=== PATIENT | female | born 1960 | race Caucasian/White ===

== ENCOUNTER 2017-08-12 12:32 | Inpatient (IN) | payer OTHER ==
[2017-08-12] VITALS (14 sets, daily range): BP systolic 107–226; BP diastolic 56–140
[~2017-08-12] VITALS: Ht 160 cm; Wt 82.1 kg
--- NOTE | ~2017-08-12 | HC ---
[facility] [place] [address] CONSULTATION Name: LENA ROSALES Room #: 212- ADM IN M.R.#: [id number] Admission: 08/12/17 Attend Phys: Ludy Collins MD Discharge: Date of : 58 Report #: [id number] THIS REPORT FOR: //name// CC: Ludy Soliman TYPE OF REPORT: Pulmonary consultation. REFERRING PHYSICIAN: Ludy Collins M.D. REASON FOR REFERRAL: Acute respiratory failure. HISTORY OF PRESENT ILLNESS: The patient is a 57-year-old white female who was brought to the Emergency Room with worsening dyspnea. She was found to be in respiratory failure. A pulmonary consultation was requested. History is incomplete. Most of this is obtained from the ER record. She apparently resides in a facility. Today she became more dyspneic. When she was seen in the Emergency Room, initial arterial blood gas revealed pH 7.25, pCO2 122 and pO2 46. She was then placed on BiPAP with some improvement in pCO2. She then became more lethargic. At this time, she is not able to be aroused while on BiPAP. PAST MEDICAL HISTORY: Notable for hepatitis C, gastroesophageal reflux disease, neuropathy, history of heart failure, diabetes mellitus, atrial fibrillation and questionable history of COPD. ALLERGIES: To ASPIRIN, CARBAMAZEPINE, PENICILLIN and TRAMADOL. HOME MEDICATIONS: Colace, DuoNeb, methadone, Levemir, Humalog, Seroquel, nebulized albuterol, famotidine, Cardizem, Neurontin, Singulair and Lasix. FAMILY HISTORY: Unknown. SOCIAL HISTORY: Unknown, but she apparently resides in a facility. REVIEW OF SYSTEMS: Deferred as the patient is very obtunded at this time. PHYSICAL EXAMINATION: GENERAL: She is not able to be aroused. According to the ER physician, she was somewhat awake and talking prior when she arrived. Her mental status did deteriorate since been in the ER. VITAL SIGNS: Temperature is 98 degrees Fahrenheit, pulse is 100, respiratory rate is 20, blood pressure 130/60 mmHg and saturation is 100%. HEENT: Unremarkable. NECK: Supple, without lymphadenopathy or thyromegaly. CHEST: Breath sounds are fair with moderate expiratory wheezes. [address] [address] CONSULTATION Name: LENA ROSALES Room #: [address] [place] [address] IN M.R.#: [id number] Admission: 08/12/17 Attend Phys: Ludy Collins MD Discharge: Date of : 58 Report #: [id number] CARDIOVASCULAR: Heart sounds are distant. No obvious murmurs or gallop. Pulses are 2+/4+ bilaterally. BREASTS: Exam deferred. ABDOMEN: Soft and nontender. No organomegaly or masses felt. GENITOURINARY: Deferred. RECTAL: Deferred. EXTREMITIES: There is no edema, cyanosis or clubbing. RADIOLOGICAL DATA: Portable chest x-ray shows vascular prominence. No obvious infiltrates and increased interstitial marking throughout. LABORATORY DATA: Sodium 137, potassium 4.4, chloride 95, CO2 is greater than 45, BUN is 30, creatinine 0.6 and glucose is 422. WBC 4400, hemoglobin 10.0 and platelets are normal. Normal bandemia. Follow arterial blood gas, revealed pH 7.29, pCO2 of 96 and pO2 107 on 50% FiO2. IMPRESSION: 1. Jdryr-zj-hssnrzl hypercapnic hypoxic respiratory failure in this 57-year-old white female. Note that the history is incomplete. Etiology is unclear but presumed the patient likely has underlying chronic obstructive lung disease. It is unclear if she has hypoventilation syndrome, perhaps related to MEDICAL ADMINISTRATIVE SPECIALIST process. Note that hypercarbia appears to be chronic with partial compensation with ruxep-my-bufjnzl hypercarbia. 2. Encephalopathy. She is very obtunded at this moment. She apparently was talking while in the Emergency Room. When she arrived in the Emergency Room, then subsequently became less responsive. She may need a neurologic workup including neurologic consultation if she remains encephalopathic. Cause of this preliminarily is likely due to toxic due to narcosis but cannot rule out sepsis or other central nervous system event. 3. Hyperglycemia. She has a history of diabetes mellitus type 2, we would recommend insulin supplements or insulin drip. 4. History of heart failure. According to the medication list, she is on diuretics. Based on the electrolyte, she appears to be . She may be volume depleted. I would hold Lasix and reevaluate. 5. History of hepatitis C. 6. Atrial fibrillation. EKG today shows normal sinus rhythm. 7. Neuropathy. RECOMMENDATIONS: We will continue noninvasive positive pressure ventilation, however, concern the patient is quite obtunded. If she does not improve, she may require intubation. Consider Neurology consultation. She does have bronchospasm. I agree with corticosteroids and bronchodilators, but we will also recommend broad-spectrum antibiotics with presumed exacerbation of COPD. [facility] [address] [place] [address] CONSULTATION Name: LENA ROSALES Room #: 212-P ADM IN M.R.#: [id number] Admission: 08/12/17 Attend Phys: Ludy Collins MD Discharge: Date of : 58 Report #: [id number] In terms of diuretics, we would recommend holding the diuretics, IV fluids and monitor electrolytes closely. Monitor urine output closely. We would recommend obtaining records from outside facility for more accurate medical history. DVT and GI prophylaxis will be recommended. Thank you for this consultation. <ELECTRONICALLY SIGNED> By: León Jacques MD 08/13/17 1941 1734 0043 León Jacques MD /nt
--- NOTE | ~2017-08-12 | HC ---
[facility] [place] [address] CONSULTATION Name: LENA ROSALES Room #: [facility]- ADM IN M.R.#: [id number] Admission: 08/12/17 Attend Phys: Ludy Collins MD Discharge: Date of : 58 Report #: [id number] THIS REPORT FOR: //name// [facility]: [facility] DATE OF SERVICE: 08/12/2017 HISTORY OF PRESENT ILLNESS: This is a 57-year-old female patient who was evaluated by me for any neurological etiology for the altered mental status. This patient was admitted with shortness of breath. The patient's oxygen saturation was 77 and subsequently she underwent a blood gas and her pCO2 was 122. Presently, it is difficult to get the history from her because she is on pressured breathing. She is also getting breathing treatment. REVIEW OF SYSTEMS: Indicate that from the record, it looks like this patient has a history of diabetes. She has a history of neuropathy and hepatitis C. One of the records indicates she may have atrial fibrillation. She is on Seroquel, it is not clear why she is on Seroquel. I cannot get much history because she is on pressured breathing and has difficulty talking. I carried out the best I could the 14-point review of system from the records. PAST MEDICAL HISTORY: Also from the record and it looks like she does have a history of COPD. FAMILY HISTORY: Negative for seizure. SOCIAL HISTORY: Obtained from the record, it says tobacco use never smoker from the record. PHYSICAL EXAMINATION: Pretty limited. She is alert. She can follow commands. I could not do the good cognitive evaluation because the patient has a lot of trouble talking because of pressured breathing. Cranial nerve examination 2-12 looks mostly unremarkable. She moves all four extremities and strength, sensation, reflexes and tone looks symmetrical. There is really no meningeal sign in this patient and there is no carotid bruit. She is very short of breath. She is average built. Her blood pressure is 155/71 but it has fluctuated, respiration is 27, pulse is 100. LABORATORY DATA: Indicate a white count of 8.4 and she did have a CT scan of the head that was reviewed and it showed no acute process. IMPRESSION AND PLAN: This patient is difficult to evaluate because of her altered mental status, but from all indication, it would appear that most likely the patient's symptoms are because of her very high pCO2. I will suggest correcting it and see how she does with it. I will also discuss with you and [address] [address] CONSULTATION Name: LENA ROSALES Room #: [facility]- ADM IN .R.#: [id number] Admission: 08/12/17 Attend Phys: Ludy Collins MD Discharge: Date of : 58 Report #: [id number] follow up in a couple of days when she is better. I do not think any further neurological workup is indicated. She has other problems like atrial fibrillation and neuropathy, which can have an addressed as an outpatient. Thank you very much for this referral. <ELECTRONICALLY SIGNED> By: Sy Perea MD 08/18/17 1145 1931 [id number] Sy Perea MD /nt
--- NOTE | ~2017-08-12 | EKG ---
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 08/14/17 1518 1616 161 Jacky Chowdhury MD, FACC /EPI
--- NOTE | ~2017-08-12 | 2DMMODE ---
[facility] [address] [place] [address] 2 D/M-MODE ECHOCARDIOGRAM Name: LENA ROSALES Room #: 239-P ADM IN M.R.#: [id number] Admission: 08/12/17 Attend Phys: Ludy Collins Discharge: Date of : 58 Date of Service: 08/13/17 0848 Report #: [id number] THIS REPORT FOR: //name// APPROVED REPORT Study performed: 08/13/2017 07:59:33 EXAM: Comprehensive 2D, Doppler, and color-flow Echocardiogram Status: on-call BSA: 1.86 HR: 73 bpm BP: 100/54 mmHg Rhythm: NSR Other Information Study Quality: Adequate Indications Respiratory failure, CHF. Hx: COPD 2D Dimensions RVDd: 32.89 mm LVEF(%): 47.31 (>50%) IVSd: 10.40 (7-11mm) LVOT Diam: 19.70 (18-24mm) LVDd: 44.32 mm PWd: 9.71 (7-11mm) LVDs: 33.87 (25-40mm) Aortic Root: 28.80 mm Mcnamara's LVEF: 47.31 % Volumes Left Atrial Volume (Systole) Single Plane 4CH: 54.84 mL Single Plane 2CH: 48.05 mL LA ESV Index: 30.00 mL/m2 Aortic Valve AoV Peak Louie.: 1.42 m/s AO Peak Gr.: 8.07 mmHg LVOT Max P.80 mmHg LVOT Max V: 1.10 m/s CHOLO Vmax: 2.35 cm2 Mitral Valve E/A Ratio: 1.7 MV Decel. Time: 162.74 ms MV E Max Louie.: 1.27 m/s [facility] [address] [place] [address] 2 D/M-MODE ECHOCARDIOGRAM Name: CONNIELENA Room #: [facility] IN ..#: [id number] Admission: 08/12/17 Attend Phys: Ludy Collins Discharge: Date of : 58 Date of Service: 08/13/17 0848 Report #: [id number] MV A Louie.: 0.74 m/s MV PHT: 47.20 ms IVRT: 106.11 ms Pulmonary Valve PV Peak Louie.: 1.15 m/s PV Peak Gr.: 5.47 mmHg Pulmonary Vein P Vein S: 0.38 m/s P Vein D: 0.70 m/s P Vein S/D Ratio: 0.54 Tricuspid Valve TR Peak Louie.: 3.28 m/s RAP Estimate: 15.00 mmHg TR Peak Gr.: 42.98 mmHg PA Pressure: 58.00 mmHg Left Ventricle The left ventricle is normal size. There is normal left ventricular wall thickness. Left ventricular systolic function is low normal. LVEF is 50%. The left ventricular diastolic function is normal. Right Ventricle The right ventricle is normal size. The right ventricular systolic function is normal. Atria The left atrium size is normal. The right atrium size is normal. Aortic Valve The aortic valve is grossly normal. No aortic regurgitation is present. There is no aortic valvular stenosis. Mitral Valve The mitral valve is normal in structure. Trace to mild mitral regurgitation. Tricuspid Valve The tricuspid valve is normal in structure. Mild tricuspid regurgitation. Estimated PAP is 55-60mmHg. Pulmonic Valve The pulmonary valve is normal in structure. Trace pulmonic regurgitation. [facility] [address] [address] 2 D/M-MODE ECHOCARDIOGRAM Name: LENA ROSALES Room #: 239-P ADM IN M.R.#: [id number] Admission: 08/12/17 Attend Phys: Ludy Collins Discharge: Date of : 58 Date of Service: 08/13/17 0848 Report #: [id number] Great Vessels The aortic root is normal in size. Ascending aorta is not well visualized. IVC is dilated and collapses <50% with inspiration. Pericardium There is no pericardial effusion. <Conclusion> The left ventricle is normal size. LVEF is 50%. The aortic valve is grossly normal. The mitral valve is normal in structure. Trace to mild mitral regurgitation. The tricuspid valve is normal in structure. Mild tricuspid regurgitation. Estimated PAP is 55-60mmHg. The pulmonary valve is normal in structure. Trace pulmonic regurgitation. There is no pericardial effusion. <ELECTRONICALLY SIGNED> By: Joni Ruiz MD 08/13/17847 7 7 Joni Ruiz MD /INF
--- NOTE | ~2017-08-12 | D ---
[facility] [place] [address] DISCHARGE SUMMARY Name: LENA ROSALES Room #: 212-P [facility] IN M.R.#: [id number] Admission: 08/12/17 Attend Phys: Ludy Collins MD Discharge: 08/19/17 Date of : 58 Report #: [id number] THIS REPORT FOR: //name// CC: Ludy Diazh [facility] DATE OF SERVICE: 08/19/2017 HISTORY OF PRESENT ILLNESS: The patient is a 57-year-old female with history of severe COPD and pulmonary hypertension, who presents to the Emergency Room with severe lethargy. Her ABG showed CO2 of 122, pH of 7.25, and pO2 of 46. Please refer to the admission H and P for details. HOSPITALIZATION COURSE: The patient was hospitalized for hotrz-pk-ptcfuum respiratory failure, hypercarbic and hypoxemic, as well as respiratory acidosis. CHF exacerbation was also suspected based on pulmonary congestion. The patient was started on appropriate treatment. She was started on diuretics, as well as on steroids, and breathing treatments and antibiotics. The patient's condition improved significantly. By next morning, the patient was alert and awake. Pulmonology was consulted. The patient was continued on steroids, and antibiotics. Her condition continued to improve. Respiratory sounds remain diminished, with mild wheezes. Cardiac echo showed significant pulmonary hypertension, and normal left ventricular ejection fraction. Pulmonary artery pressure is 55-60. During the hospital stay, the patient had hyperglycemia due to the steroid use, that was treated with insulin. Currently, the patient's condition is at baseline. She is on continuous oxygen at home, and CPAP at night for her sleep apnea. She will be discharged back to the [facility] facility. Her physical examination and overall condition is acceptable at baseline, as documented in the patient's chart. DISCHARGE DIAGNOSES: 1. Bibop-st-xokthgj hypercarbic hypoxemic respiratory failure, with respiratory acidosis, resolved. The patient is currently at baseline. Again, the patient requires continuous oxygen supplementation for her severe chronic obstructive pulmonary disease. 2. Severe pulmonary hypertension. Diastolic heart failure. Treated with diuretics. 3. Carbon dioxide narcosis, metabolic encephalopathy on admission, resolved. 4. Diabetes mellitus type 2, chronically out of control, hemoglobin A1c 8%. [address] [address] DISCHARGE SUMMARY Name: LENA ROSALES Room #: 212-P [facility] IN M.R.#: [id number] Admission: 08/12/17 Attend Phys: Ludy Collins MD Discharge: 08/19/17 Date of : 58 Report #: [id number] 5. Tobacco abuse and dependence, strongly advised to quit. 6. Sleep apnea, treated with CPAP. 7. History of hepatitis C, treated as an outpatient. 8. Paroxysmal atrial fibrillation. DISCHARGE MEDICATIONS: Please refer to the medication reconciliation list. FOLLOWUP PLAN: 1. Follow up with the glaze supervisor as advised. 2. Follow up with the primary care physician in 1-2 weeks. DISPOSITION: The patient is discharged to the [facility] facility. I spent greater than 30 minutes to coordinate the patient's discharge from the hospital. <ELECTRONICALLY SIGNED> By: Ludy Collins MD 08/22/17 1410 0926 1004 Ludy Collins MD /nt
[2017-08-12] MEDS ORDERED: COLACE100 MG PO (13:00)
[2017-08-12] MEDS ORDERED: DOLOPHINE HCL5 MG PO (13:01)
[2017-08-12] MEDS ORDERED: DUONEB 2.5-0.5 M3 ML INH (13:01)
[2017-08-12] MEDS ORDERED: LEVEMIR SUBQ (13:02)
[2017-08-12] MEDS ORDERED: HUMALOG100 UNIT/2 SQ (13:04)
[2017-08-12] MEDS ORDERED: SEROQUEL 50 MG50 MG PO (13:05)
[2017-08-12] MEDS ORDERED: ALBUTEROL SULFAT2 MG PO (13:07)
[2017-08-12] MEDS ORDERED: FAMOTIDINE 20 M20 MG PO (13:07)
[2017-08-12] MEDS ORDERED: SINGULAIR 10 MG10 M1 PO (13:08)
[2017-08-12] MEDS ORDERED: GABAPENTIN 100100 MG PO (13:08)
[2017-08-12] MEDS ORDERED: CARDIZEM CD120 MG PO (13:08)
[2017-08-12 13:28] LABS: BE(vivo) 21.9 mmol/L (-2 to +3); HCO3 53.9 mmol/L (22.0-26.0); sO2 70.6 % (92.0-98.0)
[2017-08-12 13:29] LABS: PCO2 122.7 mmHg (35.0-45.0); PO2 46.1 mmHg (80.0-100.0); pH 7.261 (7.360-7.450)
[2017-08-12 13:34] LABS: AMP/METHAMP Negative (Negative); BARBITURATES Negative (Negative); BENZODIAZEPINES Negative (Negative); COCAINE Negative (Negative); METHADONE Negative (Negative); OPIATES Negative (Negative); PCP Negative (Negative)
[2017-08-12 13:53] LABS: HEMATOCRIT 31.4 % (37.0-47.0); MCH 30.8 pg (26.0-34.0); MCHC 31.9 g/dL (28.0-37.0); MCV 96.7 fL (80.0-100.0); PLATELET COUNT 149 thou/uL (150-400); RBC 3.25 mil/uL (4.20-5.00); RDW 16.2 % (10.5-14.5); WBC 8.4 thou/uL (4.0-11.0)
[2017-08-12] MEDS ORDERED: LASIX 40 MG TAB40 M2 PO (13:57)
[2017-08-12 14:05] LABS: BUN 30 mg/dL (7-18); CHLORIDE 95 mmol/L (98-107); CREATININE 0.6 mg/dL (0.6-1.0); GLUCOSE 422 mg/dL (74-106); POTASSIUM 4.4 mmol/L (3.5-5.1); SODIUM 137 mmol/L (136-145)
[2017-08-12 14:08] LABS: CO2 > 45 mmol/L (21-32)
[2017-08-12 15:01] LABS: ANISOCYTOSIS 1+; METAMYELOCYTES 1 %
[2017-08-12 15:20] LABS: BE(vivo) 15.7 mmol/L (-2 to +3); HCO3 45.7 mmol/L (22.0-26.0); PCO2 96.6 mmHg (35.0-45.0); PO2 107.6 mmHg (80.0-100.0); pH 7.293 (7.360-7.450)
[2017-08-12 16:00] LABS: ALBUMIN 3.4 g/dL (3.4-5.0); DIRECT BILIRUBIN 0.2 mg/dL (<0.1-0.3); SGOT 31 U/L (15-37); SGPT 46 U/L (30-65); TOTAL BILIRUBIN 0.6 mg/dL (<0.1-1.0); TOTAL PROTEIN 6.7 g/dL (6.4-8.2); TROPONIN-I < 0.04 ng/mL (<0.06)
[2017-08-12 19:29] LABS: BE(vivo) 13.7 mmol/L (-2 to +3); HCO3 41.2 mmol/L (22.0-26.0); PO2 81.7 mmHg (80.0-100.0); pH 7.382 (7.360-7.450); sO2 95.4 % (92.0-98.0)
[2017-08-13] VITALS (16 sets, daily range): BP systolic 100–180; BP diastolic 52–86
[2017-08-13 05:28] LABS: HEMATOCRIT 30.6 % (37.0-47.0); MCH 30.9 pg (26.0-34.0); MCHC 32.6 g/dL (28.0-37.0); MCV 94.9 fL (80.0-100.0); PLATELET COUNT 139 thou/uL (150-400); RBC 3.23 mil/uL (4.20-5.00); RDW 15.7 % (10.5-14.5); WBC 5.5 thou/uL (4.0-11.0)
[2017-08-13 05:33] LABS: BE(vivo) 16.4 mmol/L (-2 to +3); PO2 72.3 mmHg (80.0-100.0); pH 7.401 (7.360-7.450); sO2 93.8 % (92.0-98.0)
[2017-08-13 05:34] LABS: PCO2 72.5 mmHg (35.0-45.0)
[2017-08-13 05:44] LABS: ALBUMIN 2.7 g/dL (3.4-5.0); BUN 17 mg/dL (7-18); CHLORIDE 100 mmol/L (98-107); CREATININE 0.5 mg/dL (0.6-1.0); GLUCOSE 290 mg/dL (74-106); POTASSIUM 4.5 mmol/L (3.5-5.1); SGOT 17 U/L (15-37); SGPT 35 U/L (30-65); TOTAL BILIRUBIN 0.6 mg/dL (<0.1-1.0); TOTAL PROTEIN 5.3 g/dL (6.4-8.2)
[2017-08-13 05:47] LABS: CO2 > 45 mmol/L (21-32); SODIUM 145 mmol/L (136-145)
[2017-08-13 08:24] LABS: ABSOLUTE NEUTROPHILS 4.3 thou/uL (1.4-8.2); ANISOCYTOSIS 1+; POLYCHROMASIA OCCASIONAL
[2017-08-14 03:30] VITALS: BP 140/69
[2017-08-14 05:33] LABS: BE(vivo) 16.3 mmol/L (-2 to +3); HCO3 42.4 mmol/L (22.0-26.0); PCO2 59.9 mmHg (35.0-45.0); PO2 96.3 mmHg (80.0-100.0); pH 7.468 (7.360-7.450); sO2 97.5 % (92.0-98.0)
[2017-08-14 07:04] LABS: HEMOGLOBIN 10.4 gm/dL (12.0-15.0); MCH 30.9 pg (26.0-34.0); MCHC 32.3 g/dL (28.0-37.0); MCV 95.5 fL (80.0-100.0); RBC 3.35 mil/uL (4.20-5.00); RDW 16.1 % (10.5-14.5); WBC 6.3 thou/uL (4.0-11.0)
[2017-08-14 07:22] LABS: ANION GAP < 0 mmol/L (7-16); BUN 22 mg/dL (7-18); CHLORIDE 95 mmol/L (98-107); CO2 41 mmol/L (21-32); CREATININE 0.7 mg/dL (0.6-1.0); GLUCOSE 464 mg/dL (74-106); POTASSIUM 4.5 mmol/L (3.5-5.1); SGOT 11 U/L (15-37); SGPT 33 U/L (30-65); SODIUM 135 mmol/L (136-145); TOTAL BILIRUBIN 0.6 mg/dL (<0.1-1.0); TOTAL PROTEIN 6.3 g/dL (6.4-8.2)
[2017-08-14 07:44] VITALS: BP 138/75; BP 163/89
[2017-08-14 11:45] VITALS: BP 144/72
[2017-08-14 16:35] VITALS: BP 141/68
[2017-08-14 20:51] VITALS: BP 149/53
[2017-08-15 04:00] VITALS: BP 127/63
[2017-08-15 04:13] LABS: HEMATOCRIT 31.1 % (37.0-47.0); HEMOGLOBIN 10.2 gm/dL (12.0-15.0); MCH 30.9 pg (26.0-34.0); MCHC 32.8 g/dL (28.0-37.0); MCV 94.2 fL (80.0-100.0); RBC 3.31 mil/uL (4.20-5.00); RDW 16.1 % (10.5-14.5)
[2017-08-15 04:34] LABS: ALBUMIN 2.6 g/dL (3.4-5.0); CALCIUM 9.2 mg/dL (8.5-10.1); CREATININE 0.8 mg/dL (0.6-1.0); POTASSIUM 3.9 mmol/L (3.5-5.1); TOTAL BILIRUBIN 0.4 mg/dL (<0.1-1.0); TOTAL PROTEIN 5.3 g/dL (6.4-8.2)
[2017-08-15 07:30] VITALS: BP 119/70
[2017-08-15 11:30] VITALS: BP 136/82
[2017-08-15 15:05] VITALS: BP 146/80
[2017-08-15 20:30] VITALS: BP 133/74
[2017-08-16 04:30] VITALS: BP 114/64
[2017-08-16 05:41] LABS: ABSOLUTE NEUTROPHILS 5.7 thou/uL (1.4-8.2); BASOPHILS 0.4 % (0.0-2.0); EOSINOPHILS 0.7 % (0.0-3.0); HEMATOCRIT 34.9 % (37.0-47.0); HEMOGLOBIN 11.2 gm/dL (12.0-15.0); LYMPHOCYTES 23.7 % (24.0-44.0); MCH 30.9 pg (26.0-34.0); MCHC 32.2 g/dL (28.0-37.0); MCV 95.9 fL (80.0-100.0); MONOCYTES 5.3 % (1.0-8.0); PLATELET COUNT 216 thou/uL (150-400); POLYS 69.9 % (36.0-66.0); RBC 3.64 mil/uL (4.20-5.00); RDW 16.7 % (10.5-14.5); WBC 8.2 thou/uL (4.0-11.0)
[2017-08-16 05:46] LABS: CALCIUM 9.3 mg/dL (8.5-10.1); CREATININE 0.7 mg/dL (0.6-1.0); POTASSIUM 4.1 mmol/L (3.5-5.1)
[2017-08-16 07:20] VITALS: BP 132/57
[2017-08-16 11:20] VITALS: BP 133/63
[2017-08-16 15:50] VITALS: BP 162/85
[2017-08-16 20:04] VITALS: BP 162/86
[2017-08-17 04:08] VITALS: BP 107/54
[2017-08-17 08:05] VITALS: BP 115/66
[2017-08-17 11:23] VITALS: BP 118/51
[2017-08-17 15:46] VITALS: BP 121/59
[2017-08-17 20:20] VITALS: BP 135/67
[2017-08-18 04:45] VITALS: BP 113/68
[2017-08-18 08:40] VITALS: BP 150/84
[2017-08-18 12:04] VITALS: BP 139/83
[2017-08-18 15:39] VITALS: BP 148/68
[2017-08-18 20:30] VITALS: BP 138/76
[2017-08-19 04:30] VITALS: BP 138/80
[2017-08-19 06:09] LABS: HEMATOCRIT 35.3 % (37.0-47.0); HEMOGLOBIN 11.7 gm/dL (12.0-15.0); MCHC 33.1 g/dL (28.0-37.0); MCV 93.4 fL (80.0-100.0); PLATELET COUNT 224 thou/uL (150-400); RBC 3.78 mil/uL (4.20-5.00); RDW 16.5 % (10.5-14.5); WBC 9.6 thou/uL (4.0-11.0)
[2017-08-19 06:15] LABS: ANION GAP < 0 mmol/L (7-16); BUN 24 mg/dL (7-18); CALCIUM 9.7 mg/dL (8.5-10.1); CHLORIDE 102 mmol/L (98-107); CO2 37 mmol/L (21-32); CREATININE 0.6 mg/dL (0.6-1.0); GLUCOSE 131 mg/dL (74-106); SODIUM 138 mmol/L (136-145)
[2017-08-19 07:49] LABS: ABSOLUTE NEUTROPHILS 6.4 thou/uL (1.4-8.2); MYELOCYTES 1 %
[2017-08-19 07:50] LABS: ANISOCYTOSIS 1+
[2017-08-19 08:09] VITALS: BP 102/53
[2017-08-19] MEDS ORDERED: PREDNISONE 10 M10 MG PO (09:32)
[2017-08-19] MEDS ORDERED: LEVAQUIN 500 M500 M1 PO (09:32)
[2017-08-19] MEDS ORDERED: GLUCAGON HCL1 MG IM (09:32)
[2017-08-19] MEDS ORDERED: ADVAIR HFA 230M12 GM INH (09:32)
[2017-08-19] MEDS ORDERED: NOVOLOG100 UNIT/1 SUBQ ×2 (09:32)
[2017-08-19] MEDS ORDERED: LANTUS SUBQ (09:32)
[2017-08-19 11:17] VITALS: BP 126/71
[2017-08-19 11:19] LABS: BE(vivo) 5.4 mmol/L (-2 to +3); HCO3 31.1 mmol/L (22.0-26.0); PCO2 49.8 mmHg (35.0-45.0); pH 7.413 (7.360-7.450)
[2017-08-19 11:20] LABS: PO2 50.8 mmHg (80.0-100.0)
[2017-08-19 14:54] VITALS: BP 126/71
[2017-08-19 15:34] VITALS: BP 146/93
[2017-08-19 20:08] VITALS: BP 126/71
== END 2017-08-19 18:01 | disposition home or self-care (01) | DRG 189 ==
LOC: ER 12:32 → EROBS 15:31 → ICU 16:45 → 2N 08-13 15:44
PROVIDERS: Emergency Medicine; Hospitalist; Internal Medicine Endocrinology, Diabetes & Metabolism; Internal Medicine Pulmonary Disease
PROC: 5A09357 Assistance with Respiratory Ventilation, Less than 24 Consecutive Hours, Continuous Positive Airway Pressure (ICD-10-PCS; principal; 2017-08-12)
PROC: 5A09357 Assistance with Respiratory Ventilation, Less than 24 Consecutive Hours, Continuous Positive Airway Pressure (ICD-10-PCS; 2017-08-13)
PROC: 5A09357 Assistance with Respiratory Ventilation, Less than 24 Consecutive Hours, Continuous Positive Airway Pressure (ICD-10-PCS; 2017-08-16)
PROC: 5A09357 Assistance with Respiratory Ventilation, Less than 24 Consecutive Hours, Continuous Positive Airway Pressure (ICD-10-PCS; 2017-08-18)
DX: J96.22 Acute and chronic respiratory failure with hypercapnia (principal); G93.41 Metabolic encephalopathy; E87.2 Acidosis; E87.1 Hypo-osmolality and hyponatremia; J96.21 Acute and chronic respiratory failure with hypoxia; E11.40 Type 2 diabetes mellitus with diabetic neuropathy, unspecified; I48.91 Unspecified atrial fibrillation; K21.9 Gastro-esophageal reflux disease without esophagitis; I50.9 Heart failure, unspecified; E11.65 Type 2 diabetes mellitus with hyperglycemia; I27.20 Pulmonary hypertension, unspecified; I48.0 Paroxysmal atrial fibrillation; Z87.440 Personal history of urinary (tract) infections; I11.0 Hypertensive heart disease with heart failure; D64.9 Anemia, unspecified; J44.9 Chronic obstructive pulmonary disease, unspecified; Z79.899 Other long term (current) drug therapy; Z79.4 Long term (current) use of insulin; Z88.6 Allergy status to analgesic agent; Z88.0 Allergy status to penicillin; Z88.8 Allergy status to other drugs, medicaments and biological substances
CPT/HCPCS: 10078; 10081

== ENCOUNTER 2017-08-22 10:23 | Inpatient (IN) | payer OTHER ==
[~2017-08-22] VITALS: Ht 160 cm; Wt 75.7 kg
--- NOTE | ~2017-08-22 | EKG ---
[address] [address] ELECTROCARDIOGRAM REPORT Name: LENA ROSALES Room #: 170-11 ADM IN M.R.#: [id number] Admission: 08/22/17 Attend Phys: Edgar Momin MD Discharge: Date of : 58 Report #: [id number] THIS REPORT FOR: //name// [facility] ED Test Date: 2017-08-22 Test Time: 10:38:02 Pat Name: LNEA ROSALES Department: Room: 170 Gender: F Bed And Breakfast Innkeeper: Artem CHRISTIAN : 1960 Requested By: Brittany Reyes Order Number: [id number] MD: Home Beck Measurements Intervals Dudley Rate: 99 P: 83 IN: 109 QRS: 81 QRSD: 77 T: 72 QT: 317 QTc: 407 Interpretive Statements Sinus rhythm Compared to ECG 08/12/2017 16:16:08 No significant changes Electronically Signed On 08-22-2017 15:06:01 DATA ENTRY SPECIALIST by Home Beck [email or web address] <ELECTRONICALLY SIGNED> By: Home Beck MD 08/22/17 1506 [facility] 1038 Home Beck MD /DEBORAH
[2017-08-22 10:23] VITALS: BP 150/75
[~2017-08-22 10:23] MED LIST: ADVAIR HFA 230M12 GM INH; ALBUTEROL SULFAT2 MG PO; CARDIZEM CD120 MG PO; COLACE100 MG PO; DOLOPHINE HCL5 MG PO; DUONEB 2.5-0.5 M3 ML INH; FAMOTIDINE 20 M20 MG PO; GABAPENTIN 100100 MG PO; GLUCAGON HCL1 MG IM; HUMALOG100 UNIT/2 SQ; LANTUS SUBQ; LASIX 40 MG TAB40 M2 PO; LEVAQUIN 500 M500 M1 PO; LEVEMIR SUBQ; NOVOLOG100 UNIT/1 SUBQ; PREDNISONE 10 M10 MG PO; SEROQUEL 50 MG50 MG PO; SINGULAIR 10 MG10 M1 PO
[2017-08-22 11:01] LABS: BE(vivo) 5.3 mmol/L (-2 to +3); HCO3 34.3 mmol/L (22.0-26.0); PCO2 72.7 mmHg (35.0-45.0); PO2 68.7 mmHg (80.0-100.0); pH 7.291 (7.360-7.450)
[2017-08-22 11:21] LABS: CALCIUM 9.4 mg/dL (8.5-10.1); CREATININE 0.5 mg/dL (0.6-1.0); POTASSIUM 4.7 mmol/L (3.5-5.1)
[2017-08-22 11:25] LABS: HEMOGLOBIN 12.6 gm/dL (12.0-15.0); MCH 30.7 pg (26.0-34.0); MCHC 32.4 g/dL (28.0-37.0); MCV 94.5 fL (80.0-100.0); PLATELET COUNT 194 thou/uL (150-400); RBC 4.12 mil/uL (4.20-5.00); RDW 15.7 % (10.5-14.5); WBC 8.3 thou/uL (4.0-11.0)
[2017-08-22 11:56] LABS: ABSOLUTE NEUTROPHILS 6.8 thou/uL (1.4-8.2)
[2017-08-22 12:38] LABS: BE(vivo) 10.4 mmol/L (-2 to +3); HCO3 39.5 mmol/L (22.0-26.0); PCO2 76.9 mmHg (35.0-45.0); PO2 123.7 mmHg (80.0-100.0); pH 7.328 (7.360-7.450)
[2017-08-22 15:27] VITALS: BP 150/75
[2017-08-22 15:56] VITALS: BP 133/68
[2017-08-22 16:00] VITALS: BP 142/62
[2017-08-22 19:29] VITALS: BP 135/74
[2017-08-23 03:35] VITALS: BP 138/85
[2017-08-23 06:26] LABS: MCH 30.5 pg (26.0-34.0); MCHC 32.3 g/dL (28.0-37.0); MCV 94.3 fL (80.0-100.0); RBC 3.93 mil/uL (4.20-5.00); RDW 15.5 % (10.5-14.5); WBC 7.3 thou/uL (4.0-11.0)
[2017-08-23 06:44] LABS: CALCIUM 9.7 mg/dL (8.5-10.1); CREATININE 0.9 mg/dL (0.6-1.0); MAGNESIUM 1.8 mg/dL (1.8-2.4); POTASSIUM 4.6 mmol/L (3.5-5.1)
[2017-08-23 07:25] VITALS: BP 154/84
[2017-08-23 11:12] VITALS: BP 138/76
[2017-08-23 16:20] VITALS: BP 154/107
[2017-08-23 18:56] VITALS: BP 133/63
[2017-08-24 04:08] VITALS: BP 121/66
[2017-08-24 06:25] LABS: HEMATOCRIT 32.8 % (37.0-47.0); MCH 31.1 pg (26.0-34.0); MCHC 33.7 g/dL (28.0-37.0); MCV 92.1 fL (80.0-100.0); RBC 3.56 mil/uL (4.20-5.00); RDW 15.8 % (10.5-14.5); WBC 10.2 thou/uL (4.0-11.0)
[2017-08-24 06:38] LABS: CALCIUM 10.1 mg/dL (8.5-10.1); CREATININE 0.8 mg/dL (0.6-1.0); MAGNESIUM 1.8 mg/dL (1.8-2.4); POTASSIUM 4.3 mmol/L (3.5-5.1)
[2017-08-24 07:35] VITALS: BP 119/67
[2017-08-24] MEDS ORDERED: LEVAQUIN 500 M500 M1 PO (12:29)
[2017-08-24] MEDS ORDERED: DUONEB 2.5-0.5 M3 ML INH (12:29)
[2017-08-24] MEDS ORDERED: MUCINEX600 MG PO (12:30)
[2017-08-24] MEDS ORDERED: PREDNISONE 10 M10 MG PO (12:30)
[2017-08-24 12:43] VITALS: BP 119/67
[2017-08-24 17:21] VITALS: BP 157/58
[2017-08-25 22:11] LABS: ADENOVIRUS Negative (Negative); INFLUENZA A Negative (Negative); INFLUENZA B Negative (Negative); METAPNEUMOVIRUS Negative (Negative); PARAINFLUENZA 1 Negative (Negative); PARAINFLUENZA 2 Negative (Negative); PARAINFLUENZA 3 Negative (Negative); RHINOVIRUS Positive (Negative); RSV A Negative (Negative); RSV B Negative (Negative)
== END 2017-08-24 19:27 | disposition home or self-care (01) | DRG 189 ==
LOC: ER 10:23 → EROBS 11:46 → 3W 15:51 → ENTRNSPT 08-24 19:27 → 3W 08-24 19:27
PROVIDERS: Emergency Medicine; Internal Medicine
PROC: 5A09357 Assistance with Respiratory Ventilation, Less than 24 Consecutive Hours, Continuous Positive Airway Pressure (ICD-10-PCS; principal; 2017-08-23)
DX: J96.21 Acute and chronic respiratory failure with hypoxia (principal); J44.1 Chronic obstructive pulmonary disease with (acute) exacerbation; I50.32 Chronic diastolic (congestive) heart failure; K59.00 Constipation, unspecified; J96.22 Acute and chronic respiratory failure with hypercapnia; K21.9 Gastro-esophageal reflux disease without esophagitis; E11.40 Type 2 diabetes mellitus with diabetic neuropathy, unspecified; I48.91 Unspecified atrial fibrillation; I27.20 Pulmonary hypertension, unspecified; G89.29 Other chronic pain; Z79.899 Other long term (current) drug therapy; Z79.4 Long term (current) use of insulin; Z88.6 Allergy status to analgesic agent; Z88.0 Allergy status to penicillin; Z88.8 Allergy status to other drugs, medicaments and biological substances; Z87.891 Personal history of nicotine dependence; Z91.14 Patient's other noncompliance with medication regimen
CPT/HCPCS: 10879

== ENCOUNTER 2018-04-28 01:46 | Inpatient (IN) | payer OTHER ==
[~2018-04-28] VITALS: Ht 162.6 cm; Wt 76.2 kg
[2018-04-28] VITALS (14 sets, daily range): BP systolic 110–153; BP diastolic 49–74
--- NOTE | ~2018-04-28 | O ---
[facility] [place] [address] OPERATIVE REPORT Name: LENA ROSALES Room #: 207-P ADM IN M.R.#: [id number] Admission: 04/28/18 Attend Phys: Edgar Momin MD Discharge: Date of : 58 Report #: [id number] THIS REPORT FOR: //name// [facility]: [facility] DATE OF SERVICE: 05/05/2018 PROCEDURE: Diagnostic bronchoscopy. CLINICAL HISTORY: A 58-year-old white female presents with pneumonia. Chest x-ray and chest CT shows questionable right hilar density along with persistent partial right upper lobe atelectasis. Diagnostic bronchoscopy was performed. POSTOPERATIVE DIAGNOSES: 1. Mucus plugging, right main stem bronchus. 2. Mild mucosal edema involving right upper lobe. 3. No evidence of endobronchial lesion seen. DESCRIPTION OF PROCEDURE: Following obtained consent and risks and benefits been explained to the patient, which include infection, bleeding, pneumothorax, procedure was performed in endoscopy suite. The patient was given aerosolized lidocaine at 2% to the upper airways. We also utilized 1% and 2% lidocaine to the airways. She also received 2 mg of Versed IV push along with fentanyl 50 mcg IV push. After adequate sedation, a flexible fiberoptic bronchoscope was then introduced to the left naris without difficulty. Prior to this, a Q-tip with lidocaine jelly was introduced to the left naris for topical anesthetic. Prior to the procedure, timeout was performed identifying the patient and type of procedure. A flexible fiberoptic bronchoscope was then introduced to the naris without difficulty. The epiglottis was normal. Vocal cords were normal. Trachea was normal. Soraida was normal. Left main stem bronchus and left upper lobe was normal. Right mainstem bronchus showed mucus plugging with mildly purulent thick secretions. Following washing and suctioning, the rest of the airways were examined. The right upper lobe shows mild mucosal edema, but no endobronchial abnormalities. The right middle lobe orifice was normal. Right lower lobe was unremarkable. Bronchial wash was performed in the right lower lobe. Bronchoalveolar lavage was performed in the posterior segment of the right upper lobe correlating with the patient's recent chest CT showing pneumonia involving the right upper and superior basal segment of the right lower lobe. The patient tolerated the procedure well. Post-procedure, she remained [address] [address] OPERATIVE REPORT Name: LENA ROSALES Room #: 207-P [facility] IN M.R.#: [id number] Admission: 04/28/18 Attend Phys: Edgar Momin MD Discharge: Date of : 58 Report #: [id number] somnolent. Romazicon was given. Oxygen supplementation was increased maintaining an adequate saturation greater than 90%. Following a period of observation, she became more awake. Vital signs are stable. Bronchoalveolar lavage specimen will be sent for microbiologic studies. The bronchial brush specimen will be sent for cytology. <ELECTRONICALLY SIGNED> By: León Jacques MD 05/06/18 1538 1613 1815 León Jacques MD /nt
--- NOTE | ~2018-04-28 | 2DMMODE ---
[facility] [address] [place] [address] 2 D/M-MODE ECHOCARDIOGRAM Name: LENA ROSALES Room #: 207-P ADM IN M.R.#: [id number] Admission: 04/28/18 Attend Phys: Edgar Momin, Discharge: Date of : 58 Date of Service: 05/01/18 1202 Report #: [id number] THIS REPORT FOR: //name// APPROVED REPORT Study performed: 05/01/2018 10:46:35 EXAM: Comprehensive 2D, Doppler, and color-flow Echocardiogram Patient Location: Echo lab Room #: [facility] Status: routine BSA: 1.77 HR: 120 bpm BP: 169/84 mmHg Rhythm: Tachycardia Other Information Study Quality: Adequate Technically limited study due to lung disease. Indications Short of breath, effusion, history of pulmonary HTN. Hx: CHF, AFib, COPD, DM 2D Dimensions RVDd: 38.28 mm IVSd: 9.89 (7-11mm) LVOT Diam: 18.60 (18-24mm) LVDd: 47.44 mm PWd: 10.52 (7-11mm) LVDs: 29.04 (25-40mm) Aortic Root: 26.62 mm Volumes Left Atrial Volume (Systole) Single Plane 4CH: 35.03 mL Single Plane 2CH: 35.14 mL LA ESV Index: 21.00 mL/m2 Aortic Valve AoV Peak Louie.: 1.73 m/s AO Peak Gr.: 12.01 mmHg LVOT Max P.05 mmHg LVOT Max V: 1.42 m/s CHOLO Vmax: 2.22 cm2 Pulmonary Valve PV Peak Louie.: 1.33 m/s PV Peak Gr.: 7.04 mmHg [facility] [address] [place] [address] 2 D/M-MODE ECHOCARDIOGRAM Name: LENA ROSALES Room #: [facility] ADM IN .R.#: [id number] Admission: 04/28/18 Attend Phys: Edgar Momin, Discharge: Date of : 58 Date of Service: 05/01/18 1202 Report #: [id number] Tricuspid Valve RAP Estimate: 5.00 mmHg Left Ventricle The left ventricle is normal size. There is normal LV segmental wall motion. There is normal left ventricular wall thickness. Left ventricular systolic function is normal. LVEF is 60-65%. This study is not technically sufficient to allow evaluation of the LV diastolic function. Right Ventricle The right ventricle is normal size. The right ventricular systolic function is normal. Atria The left atrium size is normal. The right atrium size is normal. Aortic Valve The aortic valve is not well visualized. No aortic regurgitation is present. There is no aortic valvular stenosis. Mitral Valve The mitral valve is normal in structure. Trace mitral regurgitation. Tricuspid Valve The tricuspid valve is normal in structure. There is no tricuspid valve regurgitation noted. Unable to assess PA pressure. Pulmonic Valve Pulmonic valve is not well visualized. Great Vessels The aortic root is normal in size. Ascending aorta is not well visualized. IVC is normal in size and collapses >50% with inspiration. Pericardium There is no pericardial effusion. <Conclusion> The left ventricle is normal size. LVEF is 60-65%. The aortic valve is not well visualized. [facility] [address] [place] [address] 2 D/M-MODE ECHOCARDIOGRAM Name: LENA ROSALES Room #: 207-P [facility] IN M.R.#: [id number] Admission: 04/28/18 Attend Phys: Edgar Momin, Discharge: Date of : 58 Date of Service: 05/01/18 120 Report #: [id number] The mitral valve is normal in structure. Trace mitral regurgitation. The tricuspid valve is normal in structure. There is no tricuspid valve regurgitation noted. Unable to assess PA pressure. Pulmonic valve is not well visualized. There is no pericardial effusion. <ELECTRONICALLY SIGNED> By: Joni Ruiz MD 05/01/18 120 01 1202 Joni Ruiz MD /INF
--- NOTE | ~2018-04-28 | EKG ---
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
--- NOTE | ~2018-04-28 | PATH ---
[facility] [address] [place] [address] PATHOLOGY RPT PROCEDURE Name: LENA ROSALES Room #: 207-P DIS IN M.R.#: [id number] Admission: 04/28/18 Date of : 58 Discharge: 05/08/18 Report #: [id number] Path Case #: [id number] Note [facility] Accession Number: [id number] TESTS RESULT FLAG UNITS REF RANGE LAB Clinician Provided Cytology Information No. of containers..01 Other (Miscellaneous) Source: R MAINSTEM BRONCH [place] DIAGNOSIS: 02 RIGHT MAINSTEM BRONCH [place] NEGATIVE FOR MALIGNANT CELLS. NORMAL BRONCHIAL CELLS AND MACROPHAGES ARE PRESENT. PULMONARY MACROPHAGES (DUST CELLS) ARE PRESENT. Signed out by: Melissa Taylor MD, Pathologist NPI- [id number] Performed by: Lexus Oliva, Bread Baker ([facility]) Gross description: 01 11ML, KIERRA, SIMEON /LCS FLAG LEGEND: L-Low Normal,H-High Normal,LL-Alert Low,HH-Alert High <-Panic Low,>-Panic High,A-Abnormal,AA-Critical Abnormal Performed at: [address] [place] [address] Riley Sims MD, [address] [address] Melissa Taylor MD, Specimen Comment: A courtesy copy of this report has been sent to Specimen Comment: [phone]. Specimen Comment: Report sent to Performed at: [address], [place], [place] [id number] MD Riley Sims MD Phone: [phone]
--- NOTE | ~2018-04-28 | HC ---
[facility] [place] [address] CONSULTATION Name: LENA ROSALES Room #: 207- ADM IN M.R.#: [id number] Admission: 04/28/18 Attend Phys: Edgar Momin MD Discharge: Date of : 58 Report #: [id number] THIS REPORT FOR: //name// CC: Edgar Diazh [facility] DATE OF SERVICE: 04/28/2018 ATTENDING PHYSICIAN: Edgar Momin MD. CONSULTATION REQUESTED BY: Dr. Landa. REASON FOR CONSULTATION: Right-sided Pneumonia, antibiotic management. HISTORY OF PRESENT ILLNESS: A 58-year-old white woman admitted with shortness of breath and spine chest pain, requesting pain medication. When we are interviewing patient, she starts coughing and moves lots of bronchial secretions. She actually sounds pretty bad. PAST MEDICAL HISTORY: 1. Previous hospitalization at [place] with pneumonia. She is known to have hepatitis C infection. 2. Substance abuse. 3. Neuropathy. 4. Diabetes mellitus. 5. COPD. 6. Bipolar disorder. DRUG ALLERGIES: PENICILLIN. MEDICATIONS: The patient is currently on treatment with Levaquin 750 mg IV single dose, p.r.n. glucose, glucagon, insulin lispro per sliding scale, p.r.n. ondansetron, acetaminophen, melatonin. I started the patient on vancomycin and meropenem as well as she is on subcutaneous enoxaparin, amlodipine, Tresiba 20 units at bedtime, amlodipine, Atrovent, albuterol inhalation treatment. Formoterol inhalation treatment. SOCIAL HISTORY: See H and P, old records. FAMILY HISTORY: See H and P, old records. REVIEW OF SYSTEMS: As above and see H and P. PHYSICAL EXAMINATION: GENERAL: Chronically ill-appearing woman, afebrile. VITAL SIGNS: Temperature 98.7, pulse 109, respirations 20, BP 143/61, O2 [facility] [address] [place] [address] CONSULTATION Name: LENA ROSALES Room #: [facility]#: [id number] Admission: 04/28/18 Attend Phys: Edgar Momin MD Discharge: Date of : 58 Report #: [id number] saturation 93-98% on 5 liters oxygen nasal cannula. HEENMT: Pupils reactive. Conjunctivae normal. Mouth: Upper and lower plates. No thrush. NECK: Supple, no thyromegaly. LUNGS: Lots of rhonchi, crackles right lung anterior and posterior lung mojica. HEART: S1, S2. No gallop or murmur. ABDOMEN: Soft, no masses or megaly. PELVIC AND RECTAL: Deferred. EXTREMITIES: No clubbing, cyanosis. NEUROLOGIC: Grossly within normal limits. LABORATORY DATA: Sodium 137, potassium 4.7, BUN 25, creatinine 0.7, glucose 212, 132. Troponin normal. WBC 12.2, hemoglobin 10, platelets 279,000. White blood cell count differential revealed 59% segmented neutrophils, 30% bands. ABGs is pending. Previous urine toxicology screen revealed marijuana use. RADIOLOGY EVALUATION: Chest x-ray revealed right upper lung pneumonia and question nodule right lung. CT scan of the chest revealed possible bronchiectasis and extensive right-sided pulmonary infiltrates. ASSESSMENT: 1. Right-sided pneumonia, possible healthcare-associated pneumonia. 2. Chronic obstructive pulmonary disease. 3. Bronchiectasis. 4. Diabetes mellitus. 5. PENICILLIN ALLERGY. 6. Substance abuse. 7. History of hepatitis C infection. SUGGESTIONS: Recommend ESR, CRP, MRSA screen. Levaquin 750 mg IV daily, Zosyn 3.375 grams IV every 8 hours and vancomycin to be dosed by pharmacy. Sputum culture a must. Dr. Landa, thank you for requesting my suggestions. <ELECTRONICALLY SIGNED> By: Byron Beck MD 05/01/18 0941 [id number] 0407 Byron Beck MD /nt
--- NOTE | ~2018-04-28 | HC ---
[facility] [address] [address] CONSULTATION Name: LENA ROSALES Room #: 207-P ADM IN M.R.#: [id number] Admission: 04/28/18 Attend Phys: Edgar Momin MD Discharge: Date of : 58 Report #: [id number] THIS REPORT FOR: //name// [facility]: [facility] DATE OF SERVICE: 04/28/2018 REFERRING PHYSICIAN: Dr. Landa. REASON FOR REFERRAL: Pneumonia. HISTORY OF PRESENT ILLNESS: The patient is a 58-year-old white female who was brought to Emergency Room with dyspnea. Chest x-ray shows right upper lobe infiltrates. Pulmonary consultation was requested. The patient was last hospitalized here in 07/2017. She has known COPD. She had been homeless. More recently, she has been at [facility] and [facility]. Three weeks ago, she was hospitalized at [facility] for respiratory issues. The patient is a fair historian. She has numerous complaints. She states that she aches all over. She is short of breath. She also states that she has coughed up blood recently. At the [facility], the patient was found to be hypoxic with saturation 84% on 4 liters of O2. Chest x-ray shows right upper lobe volume loss and infiltrates. There is a questionable lung nodule seen in the right upper lobe. PAST MEDICAL HISTORY: As mentioned above, COPD with chronic hypercapnic respiratory failure, history of hepatitis C, atrial fibrillation, gastroesophageal reflux disease, neuropathy, diabetes mellitus type 2. ALLERGIES: ASPIRIN, CARBAMAZEPINE, PENICILLIN, TRAMADOL, reactions unspecified. MEDICATIONS: From the facility include Colace, DuoNeb, Seroquel, albuterol 2 mg p.o. every day, famotidine, Cardizem, Neurontin, Singulair, Lasix. FAMILY HISTORY: Noncontributory. SOCIAL HISTORY: She was just at [facility] facility. Prior to that, she was homeless. The patient has smoked in the past, but states that she has stopped. She denies any alcohol use. REVIEW OF SYSTEMS: As mentioned above, otherwise 10-point system review [facility] [address] [place] [address] CONSULTATION Name: LENA ROSALES Room #: 207-P ADM IN M.R.#: [id number] Admission: 04/28/18 Attend Phys: Edgar Momin MD Discharge: Date of : 58 Report #: [id number]. PHYSICAL EXAMINATION: GENERAL: She is awake, alert, mildly restless, dyspneic. She appears mildly distressed. VITAL SIGNS: Temperature is 98.7 degrees Fahrenheit, pulse 100, respiratory rate 16, blood pressure 124/55 mmHg, saturation 90%. HEENT: Normocephalic, atraumatic. NECK: Supple, without lymphadenopathy or thyromegaly. CHEST: Breath sounds are decreased bilaterally, expiratory wheezes, rales in the right lung field. CARDIOVASCULAR: Normal S1, S2. No murmurs or gallop. There is no JVD. There is no carotid bruit. Pulses are 2+/4+ bilaterally. BREASTS: Deferred. ABDOMEN: Soft, nontender, no organomegaly or masses felt. GENITOURINARY: Deferred. RECTAL: Deferred. EXTREMITIES: There is no edema, cyanosis or clubbing. LABORATORY DATA: Chest x-ray as mentioned above. CT chest shows extensive consolidation involving the right upper lobe, right lower lobe involving the lateral and posterior segments and medial segments. Positive consolidation suggests necrotizing pneumonia. Electrolytes are normal. WBC 12,200, hemoglobin 10.0, the platelets are normal. No significant bandemia. IMPRESSION: 1. Acute on chronic respiratory failure due to pneumonia, extensive involving the right upper and right lower lobe. There is a consolidation and also suggest possible necrotizing pneumonia. Aspiration is suspected. 2. Chronic obstructive pulmonary disease, tobacco abuse, past history of chronic hypercapnic respiratory insufficiency as mentioned above. 3. Tobacco abuse. 4. History of hepatitis C. 5. Gastroesophageal reflux disease. 6. Diabetes mellitus type 2. 7. Bipolar disorder. 8. Atrial fibrillation, paroxysmal. 9. Neuropathy. RECOMMENDATIONS: Agree with broad-spectrum antibiotics per Infectious Disease. Bronchodilators, corticosteroids, DVT and GI prophylaxis recommended. Need a followup x-ray to assure clearance of the infiltrates. As mentioned above, areas of the consolidation are concerning for necrotizing process. [address] [address] CONSULTATION Name: LENA ROSALES Room #: 207-P ADM IN M.R.#: [id number] Admission: 04/28/18 Attend Phys: Edgar Momin MD Discharge: Date of : 58 Report #: [id number] Thank you for this consultation. <ELECTRONICALLY SIGNED> By: León Jacques MD 04/29/18 1648 1327 0421 León Jacques MD /nt
[~2018-04-28 01:46] MED LIST changes: +MUCINEX600 MG PO
[2018-04-28 04:23] LABS: MCH 28.4 pg (26.0-34.0); MCHC 33.2 g/dL (28.0-37.0); MCV 85.5 fL (80.0-100.0); PLATELET COUNT 279 thou/uL (150-400); RDW 19.6 % (10.5-14.5); WBC 12.2 thou/uL (4.0-11.0)
[2018-04-28 04:31] LABS: ANION GAP 0 mmol/L (7-16); BUN 25 mg/dL (7-18); CALCIUM 9.8 mg/dL (8.5-10.1); CHLORIDE 99 mmol/L (98-107); CO2 38 mmol/L (21-32); CREATININE 0.7 mg/dL (0.6-1.0); GLUCOSE 134 mg/dL (74-106); POTASSIUM 4.7 mmol/L (3.5-5.1); SODIUM 137 mmol/L (136-145)
[2018-04-28 04:39] LABS: TROPONIN-I <0.06 ng/mL (<0.06)
[2018-04-28 04:46] LABS: ABSOLUTE NEUTROPHILS 7.3 thou/uL (1.4-8.2); MYELOCYTES 1 %
[2018-04-28 04:47] LABS: ANISOCYTOSIS 2+; LARGE PLATELETS RARE; TOXIC GRANULATION 1+
[2018-04-28] MEDS ORDERED: NORVASC5 MG PO (10:54)
[2018-04-28] MEDS ORDERED: GABAPENTIN 100100 MG PO (10:55)
[2018-04-28] MEDS ORDERED: PERFOROMIS20 MCG/2 M INH (10:55)
[2018-04-28] MEDS ORDERED: MELATIN3 MG PO (10:55)
[2018-04-28] MEDS ORDERED: HYDROCHLOROTH12.5 M1 PO (10:55)
[2018-04-28] MEDS ORDERED: METFORMIN HCL500 MG PO ×2 (10:56)
[2018-04-28] MEDS ORDERED: UNICOMPLEX M TA1 TA1 PO (10:56)
[2018-04-28] MEDS ORDERED: JANUVIA 50 MG T50 M1 PO (10:57)
[2018-04-28] MEDS ORDERED: ALBUTEROL2.5 MG/31 INH (10:57)
[2018-04-28] MEDS ORDERED: PROAIR HFA8.5 GM INH (10:58)
[2018-04-28] MEDS ORDERED: VISTARIL 25 MG25 M1 PO (10:58)
[2018-04-28] MEDS ORDERED: NICOTINE TRANSD21 M1 (10:59)
[2018-04-28] MEDS ORDERED: LIDOCAINE PAIN1 EACH TOP (10:59)
[2018-04-28] MEDS ORDERED: PREDNISONE 5 MG5 M1 PO (11:00)
[2018-04-28] MEDS ORDERED: TRESIBA FL100 UNIT/1 SUBQ (11:00)
[2018-04-28 13:20] LABS: BE(vivo) 6.1 mmol/L (-2 to +3); HCO3 33.3 mmol/L (22.0-26.0); PCO2 62.1 mmHg (35.0-45.0); PO2 71.1 mmHg (80.0-100.0); pH 7.347 (7.360-7.450)
[2018-04-29] VITALS (13 sets, daily range): BP systolic 111–156; BP diastolic 55–96
[2018-04-29 04:17] LABS: HEMOGLOBIN 11.4 gm/dL (12.0-15.0); MCH 28.5 pg (26.0-34.0); MCHC 32.7 g/dL (28.0-37.0); MCV 87.2 fL (80.0-100.0); RBC 4.01 mil/uL (4.20-5.00); RDW 20.1 % (10.5-14.5); WBC 9.7 thou/uL (4.0-11.0)
[2018-04-29 04:24] LABS: CALCIUM 8.9 mg/dL (8.5-10.1); CREATININE 0.8 mg/dL (0.6-1.0)
[2018-04-29 04:47] LABS: POTASSIUM 5.9 mmol/L (3.5-5.1)
[2018-04-30 02:17] LABS: HEMATOCRIT 31.9 % (37.0-47.0); HEMOGLOBIN 10.2 gm/dL (12.0-15.0); MCH 27.5 pg (26.0-34.0); MCHC 31.8 g/dL (28.0-37.0); MCV 86.5 fL (80.0-100.0); PLATELET COUNT 227 thou/uL (150-400); RBC 3.69 mil/uL (4.20-5.00); RDW 19.5 % (10.5-14.5)
[2018-04-30 02:30] LABS: CALCIUM 9.1 mg/dL (8.5-10.1); CREATININE 0.9 mg/dL (0.6-1.0)
[2018-04-30 02:32] LABS: POTASSIUM 4.8 mmol/L (3.5-5.1)
[2018-04-30 02:47] LABS: ANISOCYTOSIS 2+; POLYCHROMASIA 1+
[2018-04-30 04:00] VITALS: BP 175/83
[2018-04-30 08:00] VITALS: BP 184/108
[2018-04-30 13:32] VITALS: BP 155/85
[2018-04-30 16:44] VITALS: BP 155/85
[2018-04-30 19:13] VITALS: BP 179/99
[2018-05-01 00:40] VITALS: BP 179/99
[2018-05-01 03:31] LABS: HEMATOCRIT 31.2 % (37.0-47.0); MCH 27.8 pg (26.0-34.0); MCHC 32.1 g/dL (28.0-37.0); MCV 86.5 fL (80.0-100.0); RBC 3.61 mil/uL (4.20-5.00); RDW 18.8 % (10.5-14.5); WBC 10.9 thou/uL (4.0-11.0)
[2018-05-01 03:45] LABS: CALCIUM 8.9 mg/dL (8.5-10.1); CREATININE 0.9 mg/dL (0.6-1.0); MAGNESIUM 1.7 mg/dL (1.8-2.4); POTASSIUM 4.7 mmol/L (3.5-5.1)
[2018-05-01 04:06] VITALS: BP 169/84
[2018-05-01 04:17] LABS: FOLIC ACID 16.3 ng/mL (8.6-58.9); TSH 0.154 uIU/mL (0.358-3.740)
[2018-05-01 07:09] VITALS: BP 171/94
[2018-05-01 12:05] LABS: BE(vivo) 4.7 mmol/L (-2 to +3); HCO3 31.6 mmol/L (22.0-26.0); PCO2 58.7 mmHg (35.0-45.0); PO2 60.9 mmHg (80.0-100.0); pH 7.349 (7.360-7.450); sO2 89.6 % (92.0-98.0)
[2018-05-01 16:29] VITALS: BP 151/72
[2018-05-01 19:19] VITALS: BP 177/96
[2018-05-01 23:07] LABS: GLYCOHEMOGLOBIN (HGB A1C) 8.1 % (4.8-5.6)
[2018-05-02 05:02] LABS: HEMATOCRIT 31.3 % (37.0-47.0); HEMOGLOBIN 10.2 gm/dL (12.0-15.0); MCH 28.1 pg (26.0-34.0); MCHC 32.7 g/dL (28.0-37.0); PLATELET COUNT 203 thou/uL (150-400); RBC 3.64 mil/uL (4.20-5.00); RDW 19.3 % (10.5-14.5); WBC 10.9 thou/uL (4.0-11.0)
[2018-05-02 05:08] LABS: CALCIUM 9.5 mg/dL (8.5-10.1); CREATININE 0.5 mg/dL (0.6-1.0); MAGNESIUM 2.1 mg/dL (1.8-2.4); POTASSIUM 4.9 mmol/L (3.5-5.1)
[2018-05-02 05:33] VITALS: BP 143/81
[2018-05-02 07:34] VITALS: BP 166/100
[2018-05-02 09:14] LABS: ABSOLUTE NEUTROPHILS 8.4 thou/uL (1.4-8.2); METAMYELOCYTES 3 %
[2018-05-02 09:15] LABS: ANISOCYTOSIS 2+; POLYCHROMASIA OCCASIONAL
[2018-05-02 10:41] VITALS: BP 165/89
[2018-05-02 15:00] VITALS: BP 143/71
[2018-05-02 19:35] VITALS: BP 147/86
[2018-05-03 06:00] VITALS: BP 129/73
[2018-05-03 07:50] VITALS: BP 132/63
[2018-05-03 11:50] VITALS: BP 143/71
[2018-05-03 15:00] VITALS: BP 129/70
[2018-05-04 03:45] VITALS: BP 150/84
[2018-05-04 07:25] VITALS: BP 138/67
[2018-05-04 11:40] VITALS: BP 127/69
[2018-05-04 15:50] VITALS: BP 130/57
[2018-05-04 19:04] VITALS: BP 150/80
[2018-05-04 20:06] LABS: APTT 22.6 Seconds (24.5-32.8); PROTIME 10.7 Seconds (9.3-11.4)
[2018-05-05 02:52] LABS: HEMATOCRIT 29.8 % (37.0-47.0); HEMOGLOBIN 9.5 gm/dL (12.0-15.0); MCH 27.7 pg (26.0-34.0); MCHC 31.9 g/dL (28.0-37.0); MCV 86.8 fL (80.0-100.0); RBC 3.43 mil/uL (4.20-5.00); WBC 10.2 thou/uL (4.0-11.0)
[2018-05-05 03:09] LABS: CALCIUM 7.9 mg/dL (8.5-10.1); CREATININE 0.5 mg/dL (0.6-1.0)
[2018-05-05 04:33] VITALS: BP 140/75
[2018-05-05 07:15] VITALS: BP 133/61
[2018-05-05 11:35] VITALS: BP 130/70
[2018-05-05 13:33] VITALS: BP 133/67
[2018-05-05 16:15] VITALS: BP 109/92
[2018-05-05 19:45] VITALS: BP 119/48
[2018-05-06 01:46] LABS: ANION GAP < 0 mmol/L (7-16); BUN 26 mg/dL (7-18); CALCIUM 8.8 mg/dL (8.5-10.1); CHLORIDE 98 mmol/L (98-107); CO2 40 mmol/L (21-32); CREATININE 0.9 mg/dL (0.6-1.0); GLUCOSE 233 mg/dL (74-106); POTASSIUM 5.1 mmol/L (3.5-5.1); SODIUM 137 mmol/L (136-145)
[2018-05-06 03:58] VITALS: BP 114/52
[2018-05-06 08:10] VITALS: BP 120/64
[2018-05-06 11:55] VITALS: BP 135/65
[2018-05-06 15:15] VITALS: BP 132/70
[2018-05-06 19:44] VITALS: BP 127/65
[2018-05-07 05:47] VITALS: BP 138/73
[2018-05-07 08:15] VITALS: BP 130/70
[2018-05-07] MEDS ORDERED: ZYPREXA 5 MG TAB5 M1 PO (11:42)
[2018-05-07] MEDS ORDERED: KEFLEX500 M1 PO (11:42)
[2018-05-07 16:35] VITALS: BP 135/73
[2018-05-07 20:39] VITALS: BP 161/75
[2018-05-08 04:02] VITALS: BP 114/50
[2018-05-08 07:40] VITALS: BP 125/62
[2018-05-08 09:36] VITALS: BP 125/62
== END 2018-05-08 14:05 | DRG 871 ==
LOC: ER 01:46 → EROBS 06:54 → 2N 06:54 → ICU 09:26 → 2N 04-29 13:40
PROVIDERS: Emergency Medicine; Hospitalist; Internal Medicine Pulmonary Disease
DX: A41.9 Sepsis, unspecified organism (principal); J96.21 Acute and chronic respiratory failure with hypoxia; J96.22 Acute and chronic respiratory failure with hypercapnia; J13 Pneumonia due to Streptococcus pneumoniae; T17.590A Other foreign object in bronchus causing asphyxiation, initial encounter; G93.40 Encephalopathy, unspecified; B37.0 Candidal stomatitis; M84.422A Pathological fracture, left humerus, initial encounter for fracture; J44.0 Chronic obstructive pulmonary disease with (acute) lower respiratory infection; K21.9 Gastro-esophageal reflux disease without esophagitis; K59.00 Constipation, unspecified; E11.40 Type 2 diabetes mellitus with diabetic neuropathy, unspecified; I50.9 Heart failure, unspecified; F31.9 Bipolar disorder, unspecified; G89.29 Other chronic pain; I48.0 Paroxysmal atrial fibrillation; F17.210 Nicotine dependence, cigarettes, uncomplicated; M25.519 Pain in unspecified shoulder; M54.2 Cervicalgia; J45.909 Unspecified asthma, uncomplicated; I11.0 Hypertensive heart disease with heart failure; E87.5 Hyperkalemia; B19.20 Unspecified viral hepatitis C without hepatic coma; B37.2 Candidiasis of skin and nail; X58.XXXA Exposure to other specified factors, initial encounter; Y93.89 Activity, other specified; Y92.89 Other specified places as the place of occurrence of the external cause; Y99.8 Other external cause status; Z88.6 Allergy status to analgesic agent; Z88.0 Allergy status to penicillin; Z88.8 Allergy status to other drugs, medicaments and biological substances
CPT/HCPCS: 10081; 10203; 27000

== ENCOUNTER 2018-07-16 13:07 | Inpatient (IN) | payer OTHER ==
[~2018-07-16] VITALS: Ht 162.6 cm; Wt 77.1 kg
[2018-07-16 13:07] VITALS: BP 148/69
[~2018-07-16 13:07] MED LIST changes: +ALBUTEROL2.5 MG/31 INH; +HYDROCHLOROTH12.5 M1 PO; +JANUVIA 50 MG T50 M1 PO; +KEFLEX500 M1 PO; +LIDOCAINE PAIN1 EACH TOP; +MELATIN3 MG PO; +METFORMIN HCL500 MG PO; +NICOTINE TRANSD21 M1; +NORVASC5 MG PO; +PERFOROMIS20 MCG/2 M INH; +PREDNISONE 5 MG5 M1 PO; +PROAIR HFA8.5 GM INH; +TRESIBA FL100 UNIT/1 SUBQ; +UNICOMPLEX M TA1 TA1 PO; +VISTARIL 25 MG25 M1 PO; +ZYPREXA 5 MG TAB5 M1 PO
[2018-07-16 13:36] LABS: BE(vivo) 7.5 mmol/L (-2 to +3); HCO3 35.9 mmol/L (22.0-26.0); PCO2 70.6 mmHg (35.0-45.0); PO2 64.5 mmHg (80.0-100.0); pH 7.324 (7.360-7.450); sO2 90.2 % (92.0-98.0)
[2018-07-16 14:37] LABS: ABSOLUTE NEUTROPHILS 3.1 thou/uL (1.4-8.2); BASOPHILS 0.3 % (0.0-2.0); EOSINOPHILS 0.2 % (0.0-3.0); HEMATOCRIT 37.5 % (37.0-47.0); HEMOGLOBIN 12.3 gm/dL (12.0-15.0); LYMPHOCYTES 15.3 % (24.0-44.0); MCH 28.3 pg (26.0-34.0); MCHC 32.7 g/dL (28.0-37.0); MCV 86.5 fL (80.0-100.0); MONOCYTES 10.6 % (1.0-8.0); PLATELET COUNT 112 thou/uL (150-400); POLYS 73.6 % (36.0-66.0); RBC 4.34 mil/uL (4.20-5.00); RDW 15.3 % (10.5-14.5); WBC 4.3 thou/uL (4.0-11.0)
[2018-07-16 14:44] LABS: ANION GAP 0 mmol/L (7-16); BUN 18 mg/dL (7-18); CALCIUM 9.5 mg/dL (8.5-10.1); CHLORIDE 96 mmol/L (98-107); CO2 42 mmol/L (21-32); CREATININE 0.6 mg/dL (0.6-1.0); GLUCOSE 169 mg/dL (74-106); POTASSIUM 4.4 mmol/L (3.5-5.1); SODIUM 138 mmol/L (136-145)
[2018-07-16 14:53] LABS: ALBUMIN 2.9 g/dL (3.4-5.0); SGOT 26 U/L (15-37); SGPT 25 U/L (30-65); TOTAL BILIRUBIN 0.6 mg/dL (<0.1-1.0); TOTAL PROTEIN 7.3 g/dL (6.4-8.2); TROPONIN-I <0.06 ng/mL (<0.06)
[2018-07-16 15:35] VITALS: BP 142/69
[2018-07-16 15:39] LABS: BE(vivo) 6.5 mmol/L (-2 to +3); HCO3 34.8 mmol/L (22.0-26.0); PCO2 69.4 mmHg (35.0-45.0); PO2 83.8 mmHg (80.0-100.0); pH 7.318 (7.360-7.450); sO2 95.1 % (92.0-98.0)
[2018-07-16 16:35] VITALS: BP 136/69
[2018-07-16 16:37] VITALS: BP 134/77
--- NOTE | 2018-07-16 17:21 | NUR ---
[age] YEAR OLD FEMALE ADMITTED TO 3WEST ROOM 354 UNDER THE CARE OF DR ALMEIDA. PT WAS BROUGHT INTO ER PER EMS FROM [facility]. DUE TO INCREASED SOA FOR THREE DAYS AND COUGHING UP GREEN "STUFF". PT CAME TO UNIT ON BIPAP SATS 97%, BUT NORMALLY WEARS 3L O2 AT FACILITY. PT ALERT AND ORIENTED TIMES FOUR BUT AGITATED, VSS, ST ON TELE. PT C/O OF CHRONIC PAIN IN BLE. PT WAS ABLE TO TOLEREATE DINNER, BUT WAS UNABLE TO BE WITHOUT BIPAP FOR LONG 02 SATS 88% ON 3L NC. PT NOW RESTING QUIETLY. WILL CONTINUE TO MONITOR.
[2018-07-16 19:40] VITALS: BP 138/71
[2018-07-17 04:42] VITALS: BP 138/63
[2018-07-17 05:35] LABS: HEMATOCRIT 37.7 % (37.0-47.0); HEMOGLOBIN 12.6 gm/dL (12.0-15.0); MCH 28.6 pg (26.0-34.0); MCHC 33.4 g/dL (28.0-37.0); MCV 85.7 fL (80.0-100.0); RBC 4.39 mil/uL (4.20-5.00); RDW 14.6 % (10.5-14.5)
[2018-07-17 05:50] LABS: CALCIUM 9.7 mg/dL (8.5-10.1); CREATININE 0.5 mg/dL (0.6-1.0); POTASSIUM 4.9 mmol/L (3.5-5.1)
--- NOTE | 2018-07-17 06:34 | NUR ---
PT WAS AN YESTERDAY AFTERNOON ADMIT WITH [facility]. FOLLOWING POC WITH IVPB ANTIBIOTICS. PT IS ON AND OFF BIPAP THROUGHOUT THE NIGHT. PT REQUESTED SOME COUGH SYRUP AND SPRAY FOR HER SORE THROAT, SPOKE TO SUPERVISOR FIREARMS AND GOT IT ORDERED. HOURLY ROUNDING.
[2018-07-17 07:31] VITALS: BP 144/83
--- NOTE | 2018-07-17 07:32 | NUR ---
ATTEMPTED TO CALL [facility] TO GET MED LIST FOR PATIENT BUT LINES AR BUSY.
--- NOTE | 2018-07-17 09:16 | EKG ---
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: : 1960 Requested By: Murphy Whaley Order Number: [id number] MD: Jacky Chowdhury Measurements Intervals [place] Rate: 100 P: 79 CT: 120 QRS: 78 QRSD: 80 T: 70 QT: 316 QTc: 408 Interpretive Statements Sinus tachycardia Otherwise normal tracing Compared to ECG 04/28/2018 03:55:16 No significant change was found Electronically Signed On 07-17-2018 9:16:38 SHELL [employer]ONDER by Jacky Chowdhury [email or web address] <ELECTRONICALLY SIGNED> By: Jakcy Chowdhury MD, [facility] 07/17/18 0916 1326 25 Jacky Chowdhury MD, FACC /EPI
--- NOTE | 2018-07-17 10:11 | NUR ---
DP SENT INITIAL REFERRAL TO [facility], DP ALSO SENT MESSAGE TO RASHID/ADMISSIONS AT [facility] INQUIRING IF PATIENT WAS SKILLED OR GROUP HOME AT THEIR FACILITY BEFORE HOSPITAL ADMISSION. DP WILL FOLLOW UP.
--- NOTE | 2018-07-17 13:56 | NUR ---
cm visited with pt at bedside. pt is a & o x 3, and able to make her needs know. intro to cm and transition of care. " at [facility] now but don't plan on staying there for every, [place]. i was homeless prior to last year of been in hospital and now at facility. use o2 and cpap when someone will turn on for me at bedtime. know have to go back there, but still [place]. my sister is moving so she will bring some of my stuff, when she moves"/adriano. end of visit pt working with speech therapy. will cont following as needed for dc needs. referral to be sent to [facility]. dcp [facility]
[2018-07-17 16:37] VITALS: BP 141/67
--- NOTE | 2018-07-17 17:57 | NUR ---
PATIENT HAS BEEN NOTED TO BE QUITE RESTLESS IN ROOM. TAKES OFF BIPAP, NUMEROUS TIMES EVEN THOUGH OXYGEN SAT IS LOW. EDUCATED ON NEED TO KEEP BIPAP ON. STARTED ON OXYGEN NC AT 6L. NO FEVERS NOTED. RESPIRATIONS ARE LABORED WITH NC ESPECIALLY WITH EXERTION. SHE IS SLOWLY PROGRESSING TOWARDS GOALS.
[2018-07-17 19:41] VITALS: BP 160/77
[2018-07-18 03:16] VITALS: BP 136/87
--- NOTE | 2018-07-18 03:48 | NUR ---
Pt. very anxious and fidgety at start of shift talking very fast and continous. Encouraged to take a deep breath and calm down. She just had a breathing tx then. O2 at 4L/NC and verbalized being short of breath with exertion. HS meds given and started to calm down after. She slept well with BIPAP on all night except when up to commode. Denies need for pain med at this time though she had one around 1800. Slowly progressing towards care plan goals.
[2018-07-18 08:00] VITALS: BP 151/72
[2018-07-18 12:04] VITALS: BP 153/65
--- NOTE | 2018-07-18 13:38 | NUR ---
SW reviewed chart and spoke with nursing and attending physician. Pt is progressing towards goals for discharge. Discharge back to [facility] is anticipated for tomorrow. SW updated Ajgjit in admissions. SW met with pt at bedside to provide update. Pt is aware and agreeable with plan. Pt states she does not have a bra or underwear here and wants to have these items when she is discharged. SW states that if the facility cannot bring her personal belongings, then she may have to return without them. Pt verbalized understanding. SW is following to assist as needed with discharge planning.
[2018-07-18 16:00] VITALS: BP 161/84
--- NOTE | 2018-07-18 16:28 | NUR ---
ASSUMED CARE AT SHIFT CHANGE. PT A/O X 4, HYPERACTIVE/MANIC BEHAVIOR NOTED THROUGHOUT THE DAY. PT HYPERVERBAL AND CLEANING OUT ALL OF HER BELONGING BAGS THIS AFTERNOON STATES " I JUST NEED TO GET ORGANIZED, I WANT TO BE ORGANIZED". PT MEDICATED FOR PAIN PRN. NAD NOTED. PT O2 SAT DROPPED WITH OT THIS MORNING, BUT PT WAS ABLE TO WALK WITH THERAPY THIS AFTERNOON WITH MODERATE ENDURANCE. ASSESSMENTS PER CHART. LABS NOTED. WILL CONT TO MONITOR AND INTERVENE PRN.
[2018-07-18 19:54] VITALS: BP 180/89
[2018-07-18 22:52] LABS: HEMOGLOBIN 11.8 gm/dL (12.0-15.0); RBC 4.15 mil/uL (4.20-5.00); WBC 5.8 thou/uL (4.0-11.0)
[2018-07-18 22:53] LABS: HEMATOCRIT 35.8 % (37.0-47.0); MCH 28.5 pg (26.0-34.0); MCV 86.2 fL (80.0-100.0); RDW 14.8 % (10.5-14.5)
[2018-07-18 22:58] LABS: ANION GAP 0 mmol/L (7-16); BUN 24 mg/dL (7-18); CALCIUM 9.8 mg/dL (8.5-10.1); CHLORIDE 98 mmol/L (98-107); CO2 41 mmol/L (21-32); CREATININE 0.7 mg/dL (0.6-1.0); GLUCOSE 293 mg/dL (74-106); POTASSIUM 4.9 mmol/L (3.5-5.1); SODIUM 139 mmol/L (136-145)
[2018-07-18 23:07] LABS: MAGNESIUM 1.8 mg/dL (1.8-2.4); TROPONIN-I <0.06 ng/mL (<0.06)
--- NOTE | 2018-07-19 05:17 | NUR ---
PATIENT IS ALERT AND ORIENTED. PATIENT IS SBA. PATIENT IS NSR TO SA ON TELE. PATIENTS LBM WAS THE 20TH. PATINET HAS SOME ANXIETY. PATIENT CO CHEST PAIN. EKG AND TROP NEGATIVE. PATIENT IS ON 3LNC AND BIPAP HS. PATIENT IS ON CONTINOUS PULSE OX. PATIENT DESTATES OFF OF OXYGEN. PATIENTS PAIN IS TREATED ON PAIN MEDICATIONS. PATIENT IS RESTING COMFORTABLEY IN BED. WCM. PATIENT PROGRESSING TO GOALS.
[2018-07-19 05:37] VITALS: BP 132/76
[2018-07-19 05:40] LABS: ABSOLUTE NEUTROPHILS 3.8 thou/uL (1.4-8.2); BASOPHILS 0.6 % (0.0-2.0); EOSINOPHILS 0.7 % (0.0-3.0); HEMATOCRIT 35.3 % (37.0-47.0); HEMOGLOBIN 11.4 gm/dL (12.0-15.0); MCH 27.9 pg (26.0-34.0); MCHC 32.3 g/dL (28.0-37.0); MCV 86.4 fL (80.0-100.0); MONOCYTES 7.3 % (1.0-8.0); PLATELET COUNT 135 thou/uL (150-400); POLYS 73.4 % (36.0-66.0); RBC 4.08 mil/uL (4.20-5.00); RDW 14.8 % (10.5-14.5); WBC 5.1 thou/uL (4.0-11.0)
--- NOTE | 2018-07-19 08:08 | EKG ---
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 IZAGUIRRE : 1960 Requested By: Karen Saavedra Order Number: [id number] MD: Jacky Chowdhury Measurements Intervals [place] Rate: 86 P: 74 DC: 118 QRS: 72 QRSD: 86 T: 63 QT: 334 QTc: 400 Interpretive Statements Sinus rhythm No significant abnormality Compared to ECG 07/16/2018 13:26:35 Sinus tachycardia no longer present Electronically Signed On 07-19-2018 8:08:38 [employer]VER [employer] by Jacky Chowdhury [email or web address] <ELECTRONICALLY SIGNED> By: Jacky Chowdhury MD, [facility] 07/19/18807 01 01 Jacky Chowdhury MD, FACC /EPI
[2018-07-19 08:18] VITALS: BP 150/90
--- NOTE | 2018-07-19 08:36 | NUR ---
PT IS A&0X4, SCRATCHY VOICE, C/O PAIN GEN'L ALL OVER, ENCOURAGED TO DO DEEP SLOW INHALATIONS/EXHALATIONS TO FACILITATE BREATHING, WEARS 02 AT HOME 3L, GOOD APPETITE, ENCOURAGED TO CALL FOR ANY NEEDS
[2018-07-19 12:22] VITALS: BP 168/77
--- NOTE | 2018-07-19 12:34 | NUR ---
JUANPABLO reviewed chart and spoke with nursing and attending physician. Pt is not yet medically stable for discharge. JUANPABLO updated Yaima at [facility]. Per Yaima, she will bring pt some clothes/undergarments for when she is ready for discharge. JUANPABLO is following to assist as needed with discharge planning.
[2018-07-19 16:53] VITALS: BP 176/90
[2018-07-19 18:59] VITALS: BP 168/82
[2018-07-20 03:42] VITALS: BP 187/88
--- NOTE | 2018-07-20 04:10 | NUR ---
BIPAP ON PT ALL NIGHT. COMPLAINTS ARE STILL FOLLOWING THE SAME TREND WITH CHEST PAIN. PT STATED SHE WAS HAVING STOMACH PAINS. COULD BE DUE TO LACK OF BM'S AND PAIN MEDICATION. KATTY HAS SUBSIDED TONIGHT WITH LESS ANXIETY. VSS AND NO FEVER. FOLLOWING POC WITH IVPB ANTIBIOTICS AND FLUIDS. PT UP TO BSC WITH STAND BY. HOURLY ROUNDING.
[2018-07-20 07:44] VITALS: BP 167/86
[2018-07-20 12:08] VITALS: BP 167/79
--- NOTE | 2018-07-20 14:04 | NUR ---
SW reviewed chart and spoke with nursing and attending physician. Pt is not ready for discharge back to [facility] today. SW updated [facility] liaison. Faxed clinical updates. JUANPABLO is following to assist as needed with discharge planning.
[2018-07-20 16:24] VITALS: BP 156/69
--- NOTE | 2018-07-20 18:44 | NUR ---
PATIENT HAS SLEPT THROUGH THE DAY UNTIL ABOUT 5PM. SHE IS NOTED TO HAVE ANXIETY SHE WILL SUDDENLY LEAVE THE BED WITHOUT CALLING FOR HELP. SHE WILL REQUEST MULTIPLE ITEMS AT THE SAME TIME. IV TO RIGHT UA IN PLACE. WILL CONT WITH PLAN OF CARE.
[2018-07-20 20:00] VITALS: BP 182/89
--- NOTE | 2018-07-21 00:09 | NUR ---
DISEASE PROCESS OF THE BI POLAR HAS REACHED THE KATTY PHASE TONIGHT: RESTLESS, IMPULSIVE, HIGH ANXIETY, CONFUSION, AND UNCLEAR DEMANDS. PT IS ALL OVER THE BOARD WITH MOODS AND REQUEST. SHE WANTS TO BE ON BIPAP, THEN OFF, THEN ON. PT WAS RINGING CALL LIGHT EVERY 5-10 MINUTES AT SHIFT CHANGE. CALLED ROTARY ENGRAVER LESLIE AND GOT ONE DOSE OF HALIDOL OF 2.5. GAVE PT ONE DOSE, AND SHE HAS BEEN FINALLY RESTING COMFORTABLY WITHOUT ANY ISSUES. MONITORING QT COMPLEXS.
--- NOTE | 2018-07-21 03:05 | NUR ---
TOOK OVER CARE OF PATIENT AT 0015. ASSESSMENT CHARTED. PATIENT SLEEPING. PLAN OF CARE IS TO RETURN TO [facility] POSSIBLY TODAY.
[2018-07-21 04:55] VITALS: BP 176/89
[2018-07-21 07:09] LABS: ADENOVIRUS Negative (Negative); INFLUENZA A Negative (Negative); INFLUENZA B Negative (Negative); METAPNEUMOVIRUS Positive (Negative); PARAINFLUENZA 1 Negative (Negative); PARAINFLUENZA 2 Negative (Negative); PARAINFLUENZA 3 Negative (Negative); RHINOVIRUS Negative (Negative); RSV A Negative (Negative); RSV B Negative (Negative)
[2018-07-21 08:00] VITALS: BP 177/85
[2018-07-21 11:58] VITALS: BP 170/83
--- NOTE | 2018-07-21 12:03 | NUR ---
ASSUMED CARE AT 0700, SHIFT ASSESSMENT DONE, MEDS GIVEN. BP ELEVATED THIS AM, DR CALVO INFORMED, ORAL BP MEDS STARTED. REMAINS ON BIPAP OR NASAL CANULA. POSITIVE FOR HUMAN METAPNEUMOVIRUS, DR CALVO NOTIFIED. CONSULT CALLED FOR DR CALLES. PAIN REPORTED, MEDICATED PER eMAR. ORDERS RECEIVED TO INCREASE INSULIN TO INTERMEDITE ACTING, WILL BE IMPLEMENTED. WILL CONTINUE TO ASSESS AND ASSIST WITH ADLs.
--- NOTE | 2018-07-21 13:42 | NUR ---
DISCHARGE PLANNING. ANTICIPATED DISCHARGE OVER THE WEEKEND. SPOKE WITH JOSE ANTONIO [facility] LIAISON. STATES THEY ARE ABLE TO ACCEPT PATIENT OVER THE WEEKEND. UPDATED CLINICAL INFORMATION FAXED TO HER. IF PATIENT IS READY FOR DISCHARGE PLEASE CONTACT JOSE ANTONIO AND SHE WILL FACILITATE PATIENTS DISCHARGE TRANSPORTATION BACK TO [facility], HER CONTACT NUMBER IS [phone]. PLEASE FAX DISCHARGE ORDERS TO [facility] ADMISSIONS, FAX NUMBER IS [phone]. CONTACT NUMBER FOR [facility]/REPORT IS [phone]. CHART COPY TO BE COMPLETED BY [employer]SEMBLING MACHINE ADJUSTER. -JOSE ANTONIO - [facility] HOSPITAL LIAISON CONTACT NUMBER [phone] -[facility] CONTACT NUMBER [phone] FAX FOR DC ORDERS [phone]
--- NOTE | 2018-07-21 14:54 | NUR ---
SW reviewed chart and spoke with nursing and attending physician. Pt is progressing towards goals for discharge. Pt may be ready for discharge back to [facility] over the weekend. materials planner faxed updates and notified liaison, who confirms they are able to accept pt over the weekend. Final discharge orders/summary will need to be faxed once available. Liaison will assist with transportation. Chart copy requested. SW is available to assist should needs arise. [facility]-- Liaison (Yaima): [phone]
[2018-07-21 16:50] VITALS: BP 166/78
[2018-07-21 19:53] VITALS: BP 173/85
[2018-07-22 03:58] VITALS: BP 150/76
--- NOTE | 2018-07-22 04:27 | NUR ---
PATIENT IS ALERT AND ORIENTED. PATIENT IN ON 3L NC. PATIENTS BLOOD SURGAR WAS HIGH. PATIENT WANTS TO SNACK THROUGH OUT THE NIGHT. NURSE MANAGED HER SNACKS. PATIENTS LUNGS ARE STILL WHEEZY. PATIENT IS NSR ON TELE. PAITENTS LBM WAS THE 25TH. PATIENT IS ON BIPAP HS. PATIENTS PAIN IS CONTROLLED WITH PAIN MEDICATIONS. PATIENT IS RESTING COMFORTABLEY IN BED. WCM. PATIENT IS PROGRESSING TO GOALS.
[2018-07-22 08:52] VITALS: BP 170/77
[2018-07-22 12:17] VITALS: BP 166/85
--- NOTE | 2018-07-22 15:08 | NUR ---
AAOX4. REPEATEDLY REQUESTS SNACKS, PAIN MEDICATION, AND BED PADS SO SHE CAN TAKE THEM HOME FOR HER DOGS. FREQUENT CHECKS; WILL CONTINUE TO MONITOR.
[2018-07-22 16:37] VITALS: BP 170/86
[2018-07-22 20:01] VITALS: BP 155/91
[2018-07-23 00:25] VITALS: BP 155/77
--- NOTE | 2018-07-23 03:15 | NUR ---
PATIENT ASSESSED AND IS ANON COMPLIANT TO DIET. WAS EATING HER MEALS FROM AND ALSO FAMILY BROUGHT IN TACOS AND A BURRITO. SHE ALSO ASKED FOR MILK AND CRACKERS 2 HOURS LATER. RN TRIED TO EXPLAINED HER DIET BUT SHE WOULD NOT LISTEN TO ME. ALERT X 4. SKIN WARM AND DRY. RESP EVEN AND UNLABORED. 02 AT 3LNC. DENIES ANY SOA. IS ON BIPAP AT HS. TELE- SHOWS NSR. UP AD JAMES TO BSCC AND VOIDING WELL. NO SKIN ISSUES. ACCUCHECKS WERE 197 WITH INSULIN GIVEN ORDERED. BS +. PP 2/2. IV SITE HEALTHY AND HAS FLUIDS INFUSING WELL. ALWAYS ASKING FOR MORE FOOD ALL THE SHIFT. PAIN MED GIVEN FOR BACK PAIN WITH GOOD RELIEF. LUNGS CTA-DISM. CONT PLAN OF CARE.
[2018-07-23 04:39] VITALS: BP 136/70
[2018-07-23 06:48] LABS: HEMATOCRIT 39.7 % (37.0-47.0); HEMOGLOBIN 12.7 gm/dL (12.0-15.0); MCH 27.7 pg (26.0-34.0); MCHC 31.9 g/dL (28.0-37.0); MCV 86.7 fL (80.0-100.0); RBC 4.58 mil/uL (4.20-5.00); RDW 14.7 % (10.5-14.5); WBC 7.3 thou/uL (4.0-11.0)
[2018-07-23 07:02] LABS: ALBUMIN 2.9 g/dL (3.4-5.0); ANION GAP < 0 mmol/L (7-16); BUN 31 mg/dL (7-18); CALCIUM 9.9 mg/dL (8.5-10.1); CHLORIDE 96 mmol/L (98-107); CO2 43 mmol/L (21-32); CREATININE 0.6 mg/dL (0.6-1.0); GLUCOSE 254 mg/dL (74-106); POTASSIUM 4.8 mmol/L (3.5-5.1); SGOT 12 U/L (15-37); SGPT 24 U/L (30-65); SODIUM 136 mmol/L (136-145); TOTAL BILIRUBIN 0.4 mg/dL (<0.1-1.0); TOTAL PROTEIN 6.8 g/dL (6.4-8.2)
[2018-07-23 07:38] VITALS: BP 160/88
[2018-07-23 11:52] VITALS: BP 150/66
--- NOTE | 2018-07-23 16:51 | NUR ---
Assumed care of Pt at 0700. Pt AOx3 in no acute distress. reports feeling much better today. lungs wheezy to auscultation. up ad melba w/ steady gait. ambulating around hallways with walker. frequently asking for snacks. on home dose oxygen. vitals stable. will cont to monitor. pt progressing toward poc goals.
[2018-07-23 17:12] VITALS: BP 167/90
[2018-07-23 20:15] VITALS: BP 118/53
[2018-07-24 05:48] VITALS: BP 144/77
--- NOTE | 2018-07-24 07:16 | NUR ---
Assumed care of pt at 1900. Pt diabetic. Noncompliant with diet. Asks very frequemtly for snacks. SBA to bedside commode. 3L O2. Bipap at hs as needed. C/o of chronic back, neck, and arm pain. Prn pain meds administered. Report given to am RN.
[2018-07-24 07:59] VITALS: BP 159/70
--- NOTE | 2018-07-24 09:34 | HC ---
[facility] [place] [place] [address] CONSULTATION Name: LENA ROSALES Room #: 354-[facility] IN M.R.#: [id number] Admission: 07/16/18 Attend Phys: Jericho Muñoz MD Discharge: Date of : 58 Report #: [id number] THIS REPORT FOR: //name// CC: Jericho Soliman DATE OF SERVICE: 07/21/2018 CONSULTATION REQUESTED BY: Dr. Sweetie Castano. REASON FOR CONSULTATION: Acute exacerbation of COPD. Metapneumovirus infection. HISTORY OF PRESENT ILLNESS: A 58-year-old white woman readmitted to [place] with increasing shortness of breath, chest wheezes. She is on treatment with meropenem and vancomycin. Fevers, resolved . The upper respiratory viral panel is reported positive for metapneumovirus any Infectious Disease opinion is requested. The patient relates she is readmitted with pneumonia. Actually, her chest x-ray showed no pneumonia, but obviously she has acute exacerbation of COPD. PAST MEDICAL HISTORY: COPD, history of pneumonia. Hypoxemia requiring supplemental oxygen. Hepatitis C virus infection.. Neuropathy. Diabetes mellitus. History of atrial fibrillation, bipolar disorder, previous respiratory failure, back surgery, carpal tunnel surgery. Hysterectomy.. Hyperthyroidism. DRUG ALLERGIES: PENICILLIN, ASPIRIN, CARBAMAZEPINE, TRAMADOL. MEDICATIONS: The patient on treatment with meropenem, vancomycin and doses are discontinued by me today. She is on insulin lispro, hydralazine, hydrochlorothiazide, amlodipine, insulin glargine Olanzapine with budesonide, Levaquin 750 mg IV daily, gabapentin, Atrovent, albuterol inhalation treatment, fentanyl, guaifenesin, methylprednisolone 62.5 mg b.i.d., p.r.n., hydrocodone p.r.n., acetaminophen p.r.n., ondansetron. SOCIAL HISTORY: See H and P, old records. FAMILY HISTORY: See H and P, old records. REVIEW OF SYSTEMS: See H and P and as above. PHYSICAL EXAMINATION: GENERAL: Overweight woman, nontoxic looking. VITAL SIGNS: Afebrile on admission with temperature 100.9. This has resolved. Currently, she is afebrile, temperature 97.7, pulse 76, respirations 20, BP [facility] [address] [place] [address] CONSULTATION Name: LENA ROSALES Room #: [facility] IN M.R.#: [id number] Admission: 07/16/18 Attend Phys: Jericho Muñoz MD Discharge: Date of : 58 Report #: [id number] 170/83, O2 saturation 94% on 4 liters oxygen nasal cannula. HEENMT: Within range. NECK: Supple, no thyromegaly or lymphadenopathy. BREASTS: Deferred. LUNGS: Rhonchi, wheezes both lung mojica. HEART: S1, S2. No gallop or murmur. ABDOMEN: Soft, no masses or megaly. PELVIC AND RECTAL: Deferred. EXTREMITIES: No clubbing, cyanosis. NEUROLOGIC: Grossly within normal limits. LABORATORY DATA: Revealed BUN 24, creatinine 0.7, glucose 241. WBC 5100, hemoglobin 11.4 g/dL, platelets 135,000. White blood cell count differential revealed 73% segmented neutrophils, 18% lymphocytes. Vancomycin trough levels noted. Upper respiratory viral panel by PCR revealed positive metapneumovirus acetate as assay.. ABGs: pH 7.32, pCO2 769, pO2 83, bicarbonate 34.8. Lactate normal. These set of gases on 3 liters oxygen nasal cannula. RADIOLOGY EVALUATION: 1. Chest x-ray revealed no pulmonary infiltrate, had resolution of right upper lobe pneumonia previously present. Chronic obstructive pulmonary disease with acute exacerbations, metapneumovirus upper respiratory tract infection. 2. Diabetes mellitus. 3. History of hepatitis C infection. 4. Mild anemia and thrombocytopenia. SUGGESTIONS: Discontinue IV antibiotics, Levaquin for 5 days orally [address] Castano, thank you for requesting my suggestions. <ELECTRONICALLY SIGNED> By: Byron Beck MD 07/24/18 0934 [id number] [id number] Byron Beck MD /nt
--- NOTE | 2018-07-24 10:34 | NUR ---
Assumed pt care at 0645. pt was awake, a/ox4 with am with no concerns or requests. later at med pass pt was unhappy with breakfast so i had US call down to get her ceral and some coffee. pt is ready to do home, pending pulmonolgy ok, she should d/c today. will continue to [facility]
[2018-07-24 11:17] VITALS: BP 139/85
--- NOTE | 2018-07-24 14:15 | NUR ---
DISCHARGE NOTE: JUANPABLO reviewed chart and spoke with nursing and attending physician. Pt is medically stable for discharge back to [facility] today. Awaiting pulmonary clearance. JUANPABLO met with pt at bedside to provide update. Pt is aware and agreeable with discharge plan. Pt states she is wanting to get a rollator walker when she gets back to the facility. JUANPABLO discussed case with [facility] liaison, who confirms they are able to accept pt back today. Wheelchair van transportation scheduled for 1500 per facility's arrangements. JUANPABLO notified nursing and attending physician of transportation time. Chart copy ordered. Nursing to call report. SW is following to finalize discharge.
[2018-07-24 16:58] VITALS: BP 156/93
[2018-07-24 19:12] VITALS: BP 117/54
--- NOTE | 2018-07-25 03:53 | NUR ---
Lasix IV given by day RN before she left and she voided per commode independently. Right FA IV discontinued due to infiltration. New IV placed on right upper arm. Episode of a fib RVR while doing above. She eventually converted on her own. She has been asymptomatic and didn't even feel heart rate being up at that moment. Encouraged to relax and rest. COURT RECORDING MONITOR notified. O2 at 3L/NC then slept with BIPAP on all night. Medicated for pain with good relief. Up ad melba in room with steady gait. Making progress towards care plan goals.
[2018-07-25 03:58] VITALS: BP 124/57
[2018-07-25 08:18] VITALS: BP 141/73
[2018-07-25] MEDS ORDERED: NORVASC10 MG PO (09:46)
[2018-07-25] MEDS ORDERED: PREDNISONE 20 M20 MG PO (09:46)
--- NOTE | 2018-07-25 09:54 | NUR ---
Nutrition: Pt amitted with COPD exacerbation and seen for LOS. Chart reviewed. BG elevated 186-383 on insulin and carb controlled diet. Aggravated likely with solumedrol use. Observed 100% intake of breakfast this am. Pt very sleepy during visit but appears appetite has been good. No significant weight changes per hx. pt to D/C when pulmonary clears. Consider low nutrition risk.
[2018-07-25 12:20] VITALS: BP 140/70
--- NOTE | 2018-07-25 14:20 | NUR ---
DISCHARGE NOTE: SW reviewed chart and spoke with nursing and attending physician. Pt is medically stable for discharge back to [facility] today. SW met with pt at bedside to discuss discharge plan. Pt is aware and agreeable with discharge plan. Transportation scheduled for 1700 per facility's arrangements. corporate planner faxed d/c orders and spoke with liaison. Chart copy updated. Nursing to call report. No additional SW needs identified at this time, but is available to assist should needs arise.
--- NOTE | 2018-07-25 14:52 | NUR ---
patient to dc today to [facility], pickup time is 5pm caleb mccarthy van, 3l oxygen. Unit notified, dp sent to [facility] and unit for cc.
--- NOTE | 2018-07-25 15:26 | NUR ---
Assumed care of patient at 0700. Vitals have been stable. Maintains oxygen saturations on 3L NC, wears bipap at night. Complaints of abdominal cramping this morning, Tylenol given and patient with a couple BMs throughout shift. Reports relief of cramping. Patient is anxious / restless. Calls out with multiple requests. On carb control diet but non-compliant. Asks for lots of snacks and meals in between, even though blood sugar is elevated. Attempted to educate patient but is not very receptive and continues to ask for more food. Onetime dose of IV Lasix given this morning and patient has had large amounts of urinary output. Okay to DC per pulmonary. DC orders received. Patient to go back to [facility] this evening. Attempted to call report at 1440 - no answer and message left. Provided callback number for this RN. Will attempt again before sisal picker time. Continue to monitor until discharge.
[2018-07-25 16:07] VITALS: BP 141/72
== END 2018-07-25 18:13 | DRG 193 ==
LOC: ER 13:07 → EROBS 15:01 → 3W 15:01
PROVIDERS: Hospitalist; Internal Medicine Geriatric Medicine; Nurse Practitioner Acute Care; Pediatrics; Physician Assistant; ADMIT Hospitalist
PROC: 5A09357 Assistance with Respiratory Ventilation, Less than 24 Consecutive Hours, Continuous Positive Airway Pressure (ICD-10-PCS; principal; 2018-07-16)
PROC: 5A09357 Assistance with Respiratory Ventilation, Less than 24 Consecutive Hours, Continuous Positive Airway Pressure (ICD-10-PCS; 2018-07-17)
PROC: 5A09357 Assistance with Respiratory Ventilation, Less than 24 Consecutive Hours, Continuous Positive Airway Pressure (ICD-10-PCS; 2018-07-18)
PROC: 5A09357 Assistance with Respiratory Ventilation, Less than 24 Consecutive Hours, Continuous Positive Airway Pressure (ICD-10-PCS; 2018-07-19)
PROC: 5A09357 Assistance with Respiratory Ventilation, Less than 24 Consecutive Hours, Continuous Positive Airway Pressure (ICD-10-PCS; 2018-07-20)
PROC: 5A09357 Assistance with Respiratory Ventilation, Less than 24 Consecutive Hours, Continuous Positive Airway Pressure (ICD-10-PCS; 2018-07-21)
PROC: 5A09357 Assistance with Respiratory Ventilation, Less than 24 Consecutive Hours, Continuous Positive Airway Pressure (ICD-10-PCS; 2018-07-22)
PROC: 5A09357 Assistance with Respiratory Ventilation, Less than 24 Consecutive Hours, Continuous Positive Airway Pressure (ICD-10-PCS; 2018-07-23)
PROC: 5A09357 Assistance with Respiratory Ventilation, Less than 24 Consecutive Hours, Continuous Positive Airway Pressure (ICD-10-PCS; 2018-07-24)
PROC: 5A09357 Assistance with Respiratory Ventilation, Less than 24 Consecutive Hours, Continuous Positive Airway Pressure (ICD-10-PCS; 2018-07-25)
DX: J12.3 Human metapneumovirus pneumonia (principal); J96.21 Acute and chronic respiratory failure with hypoxia; J96.22 Acute and chronic respiratory failure with hypercapnia; J44.1 Chronic obstructive pulmonary disease with (acute) exacerbation; J44.0 Chronic obstructive pulmonary disease with (acute) lower respiratory infection; I50.32 Chronic diastolic (congestive) heart failure; K21.9 Gastro-esophageal reflux disease without esophagitis; E11.40 Type 2 diabetes mellitus with diabetic neuropathy, unspecified; Y95 Nosocomial condition; F41.1 Generalized anxiety disorder; E66.9 Obesity, unspecified; I11.0 Hypertensive heart disease with heart failure; D64.9 Anemia, unspecified; D69.6 Thrombocytopenia, unspecified; B19.20 Unspecified viral hepatitis C without hepatic coma; I48.91 Unspecified atrial fibrillation; E05.90 Thyrotoxicosis, unspecified without thyrotoxic crisis or storm; F31.9 Bipolar disorder, unspecified; Z87.828 Personal history of other (healed) physical injury and trauma; Z87.891 Personal history of nicotine dependence; Z68.29 Body mass index [BMI] 29.0-29.9, adult; Z99.81 Dependence on supplemental oxygen; Z90.710 Acquired absence of both cervix and uterus; Z79.4 Long term (current) use of insulin; Z79.899 Other long term (current) drug therapy; Z88.0 Allergy status to penicillin; Z88.6 Allergy status to analgesic agent; Z88.8 Allergy status to other drugs, medicaments and biological substances
CPT/HCPCS: 10879

== ENCOUNTER 2018-08-18 21:23 | Inpatient (IN) | payer OTHER ==
[~2018-08-18] VITALS: Ht 160 cm; Wt 86.2 kg
[~2018-08-18 21:23] MED LIST changes: +NORVASC10 MG PO; +PREDNISONE 20 M20 MG PO
[2018-08-18 23:03] LABS: BE(vivo) 18.4 mmol/L (-2 to +3); HCO3 47.8 mmol/L (22.0-26.0); PO2 64.7 mmHg (80.0-100.0); pH 7.353 (7.360-7.450); sO2 90.2 % (92.0-98.0)
[2018-08-18 23:05] LABS: HEMOGLOBIN 11.1 gm/dL (12.0-15.0); MCH 28.1 pg (26.0-34.0); MCHC 32.5 g/dL (28.0-37.0); MCV 86.4 fL (80.0-100.0); PLATELET COUNT 238 thou/uL (150-400); RBC 3.94 mil/uL (4.20-5.00); RDW 15.2 % (10.5-14.5); WBC 7.7 thou/uL (4.0-11.0)
[2018-08-18 23:17] LABS: ANION GAP < 0 mmol/L (7-16); BUN 18 mg/dL (7-18); CALCIUM 9.9 mg/dL (8.5-10.1); CHLORIDE 97 mmol/L (98-107); CREATININE 0.6 mg/dL (0.6-1.0); GLUCOSE 216 mg/dL (74-106); POTASSIUM 4.4 mmol/L (3.5-5.1); SODIUM 140 mmol/L (136-145)
[2018-08-18 23:22] LABS: CO2 45 mmol/L (21-32)
[2018-08-18 23:23] LABS: ALBUMIN 2.4 g/dL (3.4-5.0); SGOT 10 U/L (15-37); SGPT 13 U/L (30-65); TOTAL BILIRUBIN 0.4 mg/dL (<0.1-1.0); TOTAL PROTEIN 6.8 g/dL (6.4-8.2)
[2018-08-18 23:44] LABS: ABSOLUTE NEUTROPHILS 4.9 thou/uL (1.4-8.2); ATYPICAL LYMPHS 1 %; METAMYELOCYTES 1 %
[2018-08-19] VITALS (8 sets, daily range): BP systolic 123–151; BP diastolic 66–76
--- NOTE | 2018-08-19 04:54 | NUR ---
ASSUMED CARE OF PATIENT FROM ER. VERY LETHARGIC, ANSWERNG ADMISSION QUESTIONS MINIMALLY. PLACED ON BIPAP. FLUIDS STARTED, WELL ANTIBIOTICS. POC GOALS ESTABLISHED, WILL CONTINUE TO MONITOR.
--- NOTE | 2018-08-19 17:00 | NUR ---
Assumed care of Pt at 0700. Pt alert and oriented x3 in mild resp distress. spo2 dropping to upper 80's on NC. bipap on PRN throughout the day. blood sugars high, increased to mod dose sliding scale. up w /sba to br. sinus on telemetry, tachycardic at times. pt progresisng toward poc goals.
[2018-08-20 04:00] VITALS: BP 152/90
--- NOTE | 2018-08-20 04:49 | NUR ---
PATIENT ASSESSED AND IS ALERT X 2-3. SKIN WARM AND DRY. HAS OLD TRACKS ON BILATERAL LEGS. 02 AT 5NC AND WEARS BIPAP AT HS. DOES DESAT WHEN TAKEN OFF AND NC PLACED. PATIENT ASKING ALL THE TIME TO EAT. HAS CHRONIC PAIN IN [facility]. DENIES THIS SHIFT. UP TO BEDPAN WITH STAND BY ASSIST. TELE- SHOWS NSR-ST AT TIMES. NO A-FIB. NO OTHER SKIN ISSUES NOTED. TAKES DIET WELL. IV NS INFUSING WELL WITH ANTIBIOTIC AT 0400. B LOOD SUGARS ARE 358. WITH INSULIN GIVEN. REFUSES TO TURN IN BED. TAKES ICE CHIPS ALOT. NEEDS ALOT OF ENCOURGEMENT TO MOVE. CONT PLAN OF CARE. BACK ON BI[PAP AFTER EATING A SNACK.
[2018-08-20 07:04] LABS: HEMATOCRIT 31.6 % (37.0-47.0); HEMOGLOBIN 10.5 gm/dL (12.0-15.0); MCH 28.4 pg (26.0-34.0); MCHC 33.1 g/dL (28.0-37.0); RBC 3.67 mil/uL (4.20-5.00); RDW 15.2 % (10.5-14.5)
[2018-08-20 07:09] LABS: CALCIUM 9.3 mg/dL (8.5-10.1); CREATININE 0.4 mg/dL (0.6-1.0)
[2018-08-20 07:12] LABS: POTASSIUM 5.4 mmol/L (3.5-5.1)
[2018-08-20 07:22] VITALS: BP 142/102
[2018-08-20 11:18] VITALS: BP 139/66
[2018-08-20 16:01] VITALS: BP 141/69
[2018-08-20 19:24] VITALS: BP 149/77
[2018-08-21 02:40] LABS: ABSOLUTE NEUTROPHILS 8.1 thou/uL (1.4-8.2); BASOPHILS 0.4 % (0.0-2.0); EOSINOPHILS 0.1 % (0.0-3.0); HEMATOCRIT 33.9 % (37.0-47.0); HEMOGLOBIN 10.6 gm/dL (12.0-15.0); LYMPHOCYTES 8.6 % (24.0-44.0); MCHC 31.3 g/dL (28.0-37.0); MCV 86.5 fL (80.0-100.0); MONOCYTES 4.6 % (1.0-8.0); PLATELET COUNT 223 thou/uL (150-400); POLYS 86.3 % (36.0-66.0); RBC 3.91 mil/uL (4.20-5.00); RDW 14.9 % (10.5-14.5); WBC 9.4 thou/uL (4.0-11.0)
[2018-08-21 04:14] VITALS: BP 152/79
[2018-08-21 07:41] VITALS: BP 163/85
--- NOTE | 2018-08-21 08:06 | NUR ---
ASSUMED CARE OF PT AT 1900. A&Ox4. VS STABLE. USED BIPAP FOR SEVERAL HOURS AND 5L O2 THROUGH NC OVER NIGHT. MAINTAINED O2 IN 90'S. DESAT'D QUICKLY WHEN UP TO BSC OR W/ TALKING A LOT. SEVERAL C/O OF THROAT PAIN, REQUESTING SNACKS AND JELLO TO MAKE IT BETTER, ICE AND CHLOROSEPTIC SPRAY PROVIDED INSTEAD D/T HIGH GLUCOSE AND NONCOMPLIANCE W/ DIABETIC DIET. IV ANTIBX GIVEN ORDERED. CURRENTLY RESTING. PROGRESSING TOWARDS POC GOALS.
[2018-08-21 08:36] LABS: CALCIUM 9.7 mg/dL (8.5-10.1); CREATININE 0.6 mg/dL (0.6-1.0); MAGNESIUM 1.9 mg/dL (1.8-2.4); POTASSIUM 4.9 mmol/L (3.5-5.1)
--- NOTE | 2018-08-21 10:45 | NUR ---
ASSESSMENT: CM REVIEWED CHART AND MET WITH PATIENT AT THE BEDSIDE. PT IS ALERT AND ORIENTED X4. PT WAS ADMITTED FOR RESPIRATORY FAILURE/COPD/PNEUMONIA. PT IS FROM [facility]. PT REPORTS SHE AMBULATES INDEPENDENTLY THERE. PT REPORTS SHE NORMALLY WEARS 3L OXYGEN AT FACILITY. PT REPORTS PLANNING ON RETURNING THERE ONCE MEDICALLY STABLE. CM NOTIFIED LIASON AT [facility] AND FAXED UPDATED CLINICAL TO THE FACILITY. CM WILL CONTINUE TO FOLLOW TO ASSIST NEEDED.
--- NOTE | 2018-08-21 11:56 | NUR ---
Assumed care of patient at 0700. Vitals have been stable; patient remains on 4-5L NC and bipap as needed. Continuous pulse ox in place. Patient does desat, especially with activity to 80s% - encourage deep breathing to recover; bipap PRN. Remains SOB with exertion. Oriented x4, drowsy at times. Patient is non-compliant at times - asking for extra snacks, although blood sugars tend to be high. Continue to educate on diet restrictions. Needs extra encouragement with ambulation. Patient up with one assist to BSC, but will ask to use bedpan at times. Offered to get patient up in chair, has declined so far. Continue to encourage ambulation. Fall precautions in place. Will continue to monitor.
[2018-08-21 12:00] VITALS: BP 148/68
[2018-08-21 16:22] VITALS: BP 144/75
[2018-08-21 19:49] VITALS: BP 153/75
--- NOTE | 2018-08-22 00:33 | NUR ---
DURING RT ROUNDS, RT STATED PT SOUNDS VERY WET. STOPPED IV MAINTANENCE FLUIDS AFTER CALLING TERESSA NELSON AND GAVE HER THE SBAR.
[2018-08-22 05:20] VITALS: BP 147/75
[2018-08-22 07:19] VITALS: BP 163/65
[2018-08-22 11:45] VITALS: BP 146/69
--- NOTE | 2018-08-22 12:39 | NUR ---
ON-GOING ASSESSMENT: CM REVIEWED CHART AND SPOKE WITH ATTENDING. PT IS SLOWLY PROGRESSING TOWARDS DISCHARGE GOALS. PER ATTENDING PATIENT MAY BE READY FOR DISCHARGE BACK TO [facility] IN 1-2 DAYS. CM NOTIFIED GELA THE LIASON AT [facility] AND ALSO FAXED UPDATED CLINICAL. CM WILL CONTINUE TO FOLLOW TO ASSIST NEEDED.
[2018-08-22 16:32] VITALS: BP 159/82
--- NOTE | 2018-08-22 18:19 | NUR ---
ASSUMED PATIENT CARE AT 0700. A/0 X4. OFF BIPAP AT 1000. PATIENT TOLERATED ON 5L/NC. DENIES PAIN. SOB WITH EXERTION. PROGRESSING TOWARDS POC GOALS.
[2018-08-22 19:25] VITALS: BP 152/83
[2018-08-23 03:45] VITALS: BP 143/67
--- NOTE | 2018-08-23 05:49 | NUR ---
ALL IV ACCESS WAS LOST DURING ASSESSMENT, TRYING TO FLUSH RAC WAS CLOTTED IN THE CANULA. THE IV SITE ON RIGHT SHOULDER INFILTRATED. WILL ATTEMPT ACCESS WITH BASKET HAND BRAIDER NURSING STAFF, IV TEAM IS WHO ACCOMPLISHED THE OTHER TWO WITH ULTRASOUND. PT REFUSED BIPAP OVERNIGHT, INSTEAD SLEPT WITH OXYGEN VIA NC. PT WAS 02 STATS WERE STABLE OVERNIGHT. PT IS NON COMPLIANT WITH DIET STILL. HOURLY ROUNDING.
[2018-08-23 08:38] VITALS: BP 152/72
[2018-08-23 12:19] VITALS: BP 151/74
[2018-08-23] MEDS ORDERED: LEVAQUIN 750 M750 MG PO (13:53)
[2018-08-23] MEDS ORDERED: PREDNISONE 10 M10 MG PO (13:53)
[2018-08-23 16:08] VITALS: BP 157/81
--- NOTE | 2018-08-23 18:04 | NUR ---
PT ALERT AND ORIENTED TIMES THREE WITH PERIODS OF CONFUSION. VSS, 98%4L, PT DENIES PAIN/SOA. PT UP TO BSC WITH STANDBY ASSIST. PT TOLERATES MEDS AND MEALS. PLANS FOR POSSSIBLE DISCHARGE BACK TO [facility] THIS EVENING.
== END 2018-08-23 18:06 | DRG 193 ==
LOC: ER 21:23 → 3W 23:55 → EROBS 23:55 → 3W 08-19 00:54
PROVIDERS: Emergency Medicine; Nurse Practitioner Family; ADMIT Internal Medicine
PROC: 5A09357 Assistance with Respiratory Ventilation, Less than 24 Consecutive Hours, Continuous Positive Airway Pressure (ICD-10-PCS; principal; 2018-08-19)
PROC: 5A09357 Assistance with Respiratory Ventilation, Less than 24 Consecutive Hours, Continuous Positive Airway Pressure (ICD-10-PCS; 2018-08-20)
PROC: 5A09357 Assistance with Respiratory Ventilation, Less than 24 Consecutive Hours, Continuous Positive Airway Pressure (ICD-10-PCS; 2018-08-21)
PROC: 5A09357 Assistance with Respiratory Ventilation, Less than 24 Consecutive Hours, Continuous Positive Airway Pressure (ICD-10-PCS; 2018-08-22)
PROC: 5A09357 Assistance with Respiratory Ventilation, Less than 24 Consecutive Hours, Continuous Positive Airway Pressure (ICD-10-PCS; 2018-08-23)
DX: J18.9 Pneumonia, unspecified organism (principal); J96.21 Acute and chronic respiratory failure with hypoxia; A41.9 Sepsis, unspecified organism; J96.22 Acute and chronic respiratory failure with hypercapnia; I50.33 Acute on chronic diastolic (congestive) heart failure; J44.1 Chronic obstructive pulmonary disease with (acute) exacerbation; J44.0 Chronic obstructive pulmonary disease with (acute) lower respiratory infection; E11.40 Type 2 diabetes mellitus with diabetic neuropathy, unspecified; K21.9 Gastro-esophageal reflux disease without esophagitis; G47.33 Obstructive sleep apnea (adult) (pediatric); I11.0 Hypertensive heart disease with heart failure; Y95 Nosocomial condition; B19.20 Unspecified viral hepatitis C without hepatic coma; F31.9 Bipolar disorder, unspecified; F41.1 Generalized anxiety disorder; I48.0 Paroxysmal atrial fibrillation; E05.90 Thyrotoxicosis, unspecified without thyrotoxic crisis or storm; Z87.828 Personal history of other (healed) physical injury and trauma; Z87.891 Personal history of nicotine dependence; Z90.710 Acquired absence of both cervix and uterus; Z79.4 Long term (current) use of insulin; Z79.899 Other long term (current) drug therapy; Z88.6 Allergy status to analgesic agent; Z88.0 Allergy status to penicillin; Z88.8 Allergy status to other drugs, medicaments and biological substances
CPT/HCPCS: 10879

== ENCOUNTER → 2018-09-22 | Outpatient (CLI) | payer OTHER ==
[~2018-09-22] MED LIST changes: +LEVAQUIN 750 M750 MG PO
--- NOTE | 2018-09-25 14:43 | SLE ---
[facility] [address] [place] [address] POLYSOMNOGRAPHY STUDY Name: LENA ROSALES Room #: [facility].#: [id number] Admission: 09/22/18 ������������������ Attend Phys: Franklyn Castano MD Discharge: ������������������ Date of : 58 Report #: [id number] THIS REPORT FOR: //name// CC: Franklyn Soliman DATE OF SERVICE: 09/22/2018 SLEEP STUDY ATTENDING PHYSICIAN: Dr. Mayito Licea. The patient is 58 years old, who weighs 193 pounds with a BMI of 34.2. The patient's Linton score was 12 out of a maximum of 24. The patient uses oxygen 2 liters all the time for COPD. The patient underwent sleep study at [facility]. The study was performed on room air. During the night study, the patient spent 492 minutes in bed and slept for 219 minutes with a sleep efficiency of 44%. Sleep latency was 13.6 minutes with a REM latency of 475 minutes, which is prolonged. Overall, sleep architecture showed normal stage 1 sleep, increased stage 2 sleep which was 90% of total sleep time, normal N3 sleep and reduced REM sleep. During the night of the study, the patient had no apneas, but 35 hypopneas. The patient's apnea-hypopnea index was 9.6 per hour with a REM index of 86 per hour. EKG monitoring revealed an average heart rate of 92 beats per minute. Normal sinus rhythm with frequent PVCs observed. No sustained arrhythmias observed. PLMS were not observed. Nocturnal oximetry study revealed an average oxygen saturation of 84% with lowest of 60%. 193 minutes were spent in oxygen saturation of less than 89%. The patient did meet the criteria for CPAP initiation, but it was late in the night and there was not enough time and as a result CPAP was not initiated. IMPRESSION: 1. Mild sleep apnea-hypopnea syndrome with worsening during REM sleep. Total AHI of 9.6 per hour with a REM AHI of 86 per hour. 2. Nocturnal hypoxia secondary to obstructive sleep apnea and hypoventilation. 3. No clinically significant periodic limb movements of sleep. 4. Reduced sleep efficiency of 44% resulting from sleep maintenance insomnia. RECOMMENDATIONS: [facility] [address] [place] [address] POLYSOMNOGRAPHY STUDY Name: LENA ROSALES Room #: [facility].#: [id number] Admission: 09/22/18 ������������������ Attend Phys: Franklyn Castano MD Discharge: ������������������ Date of : 58 Report #: [id number] 1. The patient is clinically symptomatic with an Linton score of 12. The patient would benefit from treatment of sleep apnea with either oral appliance or a trial of CPAP titration. 2. Once the patient is treated, then follow up in 4-6 weeks to assess compliance and to document clinical improvement. 3. Weight loss is strongly advised. 4. Avoid TERADATA SOLUTION ARCHITECT depressants. 5. Cautioned regarding driving until symptoms of sleep apnea resolves with the above recommendations. ��������������������������������������������� <ELECTRONICALLY SIGNED> ���������������������������������������� By: Franklyn Castano MD ��������������������������������������������� 09/25/18 1443 0838 1004 Franklyn Castano MD /nt
== END ==
LOC: SLEEPLAB 09:11
DX: G47.33 Obstructive sleep apnea (adult) (pediatric) (principal); R09.02 Hypoxemia

== ENCOUNTER 2018-11-14 11:00 | Inpatient (IN) | payer OTHER ==
[~2018-11-14] VITALS: Ht 162.6 cm; Wt 102.1 kg
[~2018-11-14 11:00] MED LIST changes: +HYDROXYZINE HCL25 M1 PO; +LIDOCAINE 4% PATCH TOP; -LIDOCAINE PAIN1 EACH TOP; -VISTARIL 25 MG25 M1 PO
[2018-11-14 11:07] VITALS: BP 126/66
[2018-11-14 11:46] LABS: BE(vivo) 14.7 mmol/L (-2 to +3); HCO3 47.1 mmol/L (22.0-26.0); PCO2 117.1 mmHg (35.0-45.0); PO2 87.5 mmHg (80.0-100.0); pH 7.222 (7.360-7.450); sO2 93.8 % (92.0-98.0)
[2018-11-14 11:57] LABS: ABSOLUTE NEUTROPHILS 4.2 thou/uL (1.4-8.2); BASOPHILS 0.3 % (0.0-2.0); HEMATOCRIT 38.4 % (37.0-47.0); HEMOGLOBIN 12.1 gm/dL (12.0-15.0); LYMPHOCYTES 17.2 % (24.0-44.0); MCH 28.9 pg (26.0-34.0); MCHC 31.5 g/dL (28.0-37.0); MCV 91.8 fL (80.0-100.0); MONOCYTES 7.4 % (1.0-8.0); PLATELET COUNT 109 thou/uL (150-400); POLYS 74.1 % (36.0-66.0); RBC 4.19 mil/uL (4.20-5.00); WBC 5.6 thou/uL (4.0-11.0)
[2018-11-14 12:03] LABS: BUN 17 mg/dL (7-18); CALCIUM 9.5 mg/dL (8.5-10.1); CHLORIDE 98 mmol/L (98-107); CREATININE 0.6 mg/dL (0.6-1.0); GLUCOSE 311 mg/dL (74-106); POTASSIUM 4.7 mmol/L (3.5-5.1); SODIUM 143 mmol/L (136-145)
[2018-11-14 12:08] LABS: CO2 > 45 mmol/L (21-32)
[2018-11-14 12:13] LABS: ALBUMIN 3.4 g/dL (3.4-5.0); SGOT 14 U/L (15-37); SGPT 22 U/L (30-65); TOTAL BILIRUBIN 0.5 mg/dL (<0.1-1.0); TOTAL PROTEIN 7.2 g/dL (6.4-8.2); TROPONIN-I <0.06 ng/mL (<0.06)
[2018-11-14 12:14] LABS: ANION GAP ND mmol/L (7-16)
[2018-11-14 13:19] LABS: BE(vivo) 9.2 mmol/L (-2 to +3); HCO3 39.3 mmol/L (22.0-26.0); PCO2 89.3 mmHg (35.0-45.0); PO2 69.7 mmHg (80.0-100.0); pH 7.261 (7.360-7.450); sO2 90.3 % (92.0-98.0)
[2018-11-14] MEDS ORDERED: NOVOLOG100 UNIT/1 SUBQ (15:32)
[2018-11-14] MEDS ORDERED: DULERA 200 MCG/13 GM INH (15:36)
[2018-11-14 15:47] VITALS: BP 172/75
[2018-11-14 20:27] VITALS: BP 176/83
[2018-11-15 03:47] VITALS: BP 132/74
[2018-11-15 05:53] LABS: HEMOGLOBIN 11.9 gm/dL (12.0-15.0); MCH 29.4 pg (26.0-34.0); MCHC 32.3 g/dL (28.0-37.0); MCV 90.9 fL (80.0-100.0); RBC 4.07 mil/uL (4.20-5.00); RDW 14.8 % (10.5-14.5); WBC 5.3 thou/uL (4.0-11.0)
[2018-11-15 06:03] LABS: BUN 21 mg/dL (7-18); CALCIUM 9.7 mg/dL (8.5-10.1); CHLORIDE 95 mmol/L (98-107); CREATININE 0.6 mg/dL (0.6-1.0); GLUCOSE 262 mg/dL (74-106); MAGNESIUM 1.7 mg/dL (1.8-2.4); POTASSIUM 4.3 mmol/L (3.5-5.1); SODIUM 141 mmol/L (136-145)
[2018-11-15 06:05] LABS: CO2 > 45 mmol/L (21-32)
--- NOTE | 2018-11-15 06:41 | NUR ---
ASSUMED CARE OF PT AT 1900. A&Ox4. VS HAVE BEEN IRREGULAR. BECAME TACHY W/ HR STAY AT 139-140, METOPROLOL 5mg IVP GIVEN PER DRAWING TENDER ORDERS, HR DROPPED TO 70s WITH SA. BIPAP IN PLACE ALL NOC. TOOK IT OFF WHEN UP TO BSC WHILE CLEANING HER BED AFTER INCONTINENCE IN BED AND PT DESAT'D TO 70s IN LESS THAN 2 MINUTES. O2 SAT'S 92-94% ON CONT PULSE OX W/ BIPAP AND BREATHING TXs. MANY REQUESTS OVER NOC, PROVIDED MUCH POSSIBLE, SUGAR-FREE JELLO GIVEN FOR SNACKS DUE TO GLUCOSE OF 245. CURRENTLY SLEEPING. SLOW PROGRESSION TOWARDS POC GOALS.
[2018-11-15 07:51] VITALS: BP 134/71
--- NOTE | 2018-11-15 09:32 | EKG ---
[address] [address] ELECTROCARDIOGRAM REPORT Name: LENA ROSALES Room #: 356-P ADM IN M.R.#: [id number] ������������������ Admission: 11/14/18 ������������������ Attend Phys: Edgar Momin MD Discharge: ������������������ Date of : 58 Report #: [id number] ����������������������������������������������������������������� [id number] THIS REPORT FOR: //name// [facility] ED Test Date: 2018-11-14 Test Time: 11:19:49 Pat Name: LENA ROSALES Department: Room: 356 Gender: F Endoscopy Rn: DIRK : 1960 Requested By: Murphy Whaley Order Number: [id number] MD: Jason Oquendo Measurements Intervals [place] Rate: 103 P: 76 CT: 124 QRS: 78 QRSD: 81 T: 62 QT: 320 QTc: 419 Interpretive Statements Sinus tachycardia Compared to ECG 07/18/2018 23:02:27 Sinus rhythm no longer present Electronically Signed On 11-15-2018 9:32:39 CDT by Jason Oquendo [email or web address] ��������������������������������������������� <ELECTRONICALLY SIGNED> ���������������������������������������� By: Jason Oquendo MD ��������������������������������������������� 11/15/18 0932 1119 1119 Jason Oquendo MD /DEBORAH
--- NOTE | 2018-11-15 10:41 | NUR ---
INITIAL ASSESSMENT: JUANPABLO reviewed chart and spoke with nursing. Pt was admitted from [facility] due to acute respiratory failure/COPD. Pt with hx of bipolar. Pt is on IV steroids and IV abx. JUANPABLO met with pt at bedside. Introduced role of SW. Pt is alert/orientated x 4. Pt reports she is normally independent with ADLs and does not use any DME. Pt does wear O2 and bipap at HS at the facility. Pt confirms her plan is to return to [facility] when discharge. Pt requests SW contact the facility to request that her cell phone be brought to the hospital. SW spoke with [facility] liaison, who states she will bring pt's cell phone later today. JUANPABLO is following to assist as needed with discharge planning.
[2018-11-15 11:11] LABS: BE(vivo) 16.1 mmol/L (-2 to +3); HCO3 44.9 mmol/L (22.0-26.0); PO2 93.1 mmHg (80.0-100.0); pH 7.378 (7.360-7.450); sO2 96.6 % (92.0-98.0)
[2018-11-15 11:44] VITALS: BP 140/72
--- NOTE | 2018-11-15 13:00 | NUR ---
VASCULAR ACCESS CONSULTED FOR A VAD. A MIDLINE PLACED FOR LEVOQUIN AND IV STEROIDS. PLEASE SEE INSERTION INTERVENTION FOR DETAILS
[2018-11-15 16:38] VITALS: BP 147/70
[2018-11-15 19:30] VITALS: BP 141/65
[2018-11-16 03:55] VITALS: BP 139/64
[2018-11-16 06:07] LABS: HEMATOCRIT 35.6 % (37.0-47.0); HEMOGLOBIN 11.5 gm/dL (12.0-15.0); MCH 29.1 pg (26.0-34.0); MCHC 32.3 g/dL (28.0-37.0); RBC 3.95 mil/uL (4.20-5.00); RDW 14.9 % (10.5-14.5); WBC 7.4 thou/uL (4.0-11.0)
[2018-11-16 06:12] LABS: CREATININE 0.7 mg/dL (0.6-1.0); POTASSIUM 4.3 mmol/L (3.5-5.1)
--- NOTE | 2018-11-16 07:55 | NUR ---
ASSUMED CARE OF PT AT 1900. A&Ox4, ANXIOUS. TOOK OFF BIPAP 5Xs FIRST HOUR I WAS HERE. DESAT'S QUICKLY TO 70'S WITHOUT BIPAP. CONTACTED HAND [employer]KER FOR SOMETHING FOR ANXIETY. 1X SMALL DOSE ATIVAN GIVEN. PT WAS ABLE TO TOLERATE MASK BETTER. COOPERATIVE W/ OTHER MEDS. DENIED PAIN. CURRENTLY RESTING. SLOW PROGRESSIONT TOWARDS POC GOALS.
[2018-11-16 08:53] VITALS: BP 142/55
[2018-11-16 10:35] LABS: BE(vivo) 14.7 mmol/L (-2 to +3); HCO3 42.4 mmol/L (22.0-26.0); PO2 73.3 mmHg (80.0-100.0); pH 7.405 (7.360-7.450); sO2 94.2 % (92.0-98.0)
[2018-11-16 10:37] LABS: PCO2 69.3 mmHg (35.0-45.0)
[2018-11-16 10:57] VITALS: BP 139/58
--- NOTE | 2018-11-16 12:45 | NUR ---
SW reviewed chart and spoke with nursing and attending physician. Pt continues on bipap support and IV abx/IV steroids. No weekend discharge anticipated. town planner to fax updates to Centers tomorrow. JUANPABLO is following to assist as needed with discharge planning.
[2018-11-16 16:51] VITALS: BP 151/76
[2018-11-16 19:30] VITALS: BP 156/61
--- NOTE | 2018-11-16 19:58 | NUR ---
PATIENT HAS BEEN ALERT ORIENTED X4. SHE IS PLEASANT AND SOMETIMES SHE IS ANXIOUS. REDIRECTED EASILY. HAD A SHOWER WHICH SHE ENJOYED VERY MUCH. WAS UP ON CHAIR ALL DAY AND SHE DID NOT COMPLAIN OF PAIN AT THIS TIME. CONT ON OXYGEN AT 4L AND O2 SAY HAS REMAINED ABOVE 90%. WILL CONT WITH PLAN OF CARE.
[2018-11-17 03:45] VITALS: BP 143/60
--- NOTE | 2018-11-17 05:16 | NUR ---
Pt. on O2 at 4L/NC then BIPAP on while asleep. Tolerated being on BIPAP for most of the night. Anxious at times but was able to redirect after HS meds given. Up with assist x1 to bathroom. Making progress towards care plan goals.
[2018-11-17 06:52] LABS: HEMOGLOBIN 11.4 gm/dL (12.0-15.0); MCH 29.5 pg (26.0-34.0); MCHC 32.7 g/dL (28.0-37.0); MCV 90.4 fL (80.0-100.0); RBC 3.87 mil/uL (4.20-5.00); RDW 15.2 % (10.5-14.5); WBC 6.8 thou/uL (4.0-11.0)
[2018-11-17 07:02] LABS: ANION GAP < 0 mmol/L (7-16); BUN 30 mg/dL (7-18); CALCIUM 10.2 mg/dL (8.5-10.1); CHLORIDE 100 mmol/L (98-107); CO2 42 mmol/L (21-32); CREATININE 0.8 mg/dL (0.6-1.0); GLUCOSE 292 mg/dL (74-106); POTASSIUM 4.1 mmol/L (3.5-5.1); SODIUM 140 mmol/L (136-145)
[2018-11-17 07:27] VITALS: BP 158/82
[2018-11-17 11:56] VITALS: BP 135/67
--- NOTE | 2018-11-17 13:47 | NUR ---
JUANPABLO reviewed chart and spoke with nursing. Pt remains on IV abx and IV steroids. Pt is progressing towards goals for discharge. Pt may be ready for discharge back to [facility] over the weekend. inventory control planner faxed updates to [facility] for review. SW updated [facility] liaison regarding possible weekend discharge. Chart copy will need to be completed. Nursing will need to contact the facility to arrange discharge and transportation. Pt will need w/c van transportation with O2. Discharge orders/summary to be faxed to facility when finalized. SW is available to assist should needs arise. [facility]--
--- NOTE | 2018-11-17 14:10 | NUR ---
ASSUMED CARE OF PT AT 0700. PT IS A&Ox4. PT HAS BEEN PLEASANT AND COOPERATIVE. PT SEEMS TO HAVE A LITTLE ANXIETY BUT IS EASILY REDIRECTED. COMPLAINED THIS MORNING OF GENERALIZED JOINT PAIN BUT DID NOT ASK FOR MEDICATION AND THERE WERE NO VISIBLE S/S OF PAIN BEING EXPERIENCED. PT REPORTS THAT HER SWELLING HAS DECREASED AND HER LEGS "FEEL BETTER." PT HAS ASKED FOR SEVERAL SNACKS. APPETITE IS GOOD. CURRENTLY RESTING IN BED. PT IS SLOWLY PROGRESSING TOWARD POC GOALS. WILL CONTINUE TO MONITOR AND ASSESS.
--- NOTE | 2018-11-17 14:17 | NUR ---
DISCHARGE PLANNING. POSSIBLE WEEKEND DISCHARGE. PATIENT RESIDES AT [facility] FINAL APPLICATION [facility]. PATIENT WOULD RETURN TO HER LTC UNIT ONCE MEDICALLY READY. UPDATED CLINICAL INFORMATION FAXED TO JOSE ANTONIO. [facility] HOSPITAL LIAISON. JOSE ANTONIO NOTIFIED OF POSSIBLE WEEKEND DISCHARGE. [facility] CONTACT INFORMATION [phone] FAX [phone] JOSE ANTONIO CONTACT NUMBER IS [phone] PLEASE CONTACT HER TO FACILITATE DISCHARGE AND TRANSPORTATION. IF UNAVAILABLE CONTACT [facility] MAIN NUMBER AND ASK FOR WEEKEND CHARGE NURSE. PLEASE FAX DISCHARGE ORDERS TO ABOVE FAX ONCE COMPLETED PER ATTENDING PHYSICIAN. THANK YOU
--- NOTE | 2018-11-17 14:19 | NUR ---
ASSUMED CARE OF PT AT 0700. PT HAS BEEN IN AND OUT OF SLEEP THIS MORNING. CAREGIVER PROVIDED BY FAMILY WHO IS AT THE BEDSIDE REPORTS PT DID NOT SLEEP AT ALL LAST NIGHT. WHEN AWAKE, PT IS ORIENTATED TO PERSON. IS CALM AND COOPERATIVE ALTHOUGH NON-VERBAL. PT HAS ACTIVE BOWEL SOUNDS AND HAD A LARGE BOWEL MOVEMENT THIS MORNING. ABDOMEN IS DISTENDED. PT IS NPO PENDING A SPEECH REEVALUATION. RECEIVING TPN AND LIPIDS. SLOWLY PROGRESSING TOWARD POC GOALS. WILL CONTINUE TO MONITOR AND ASSESS.
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
[2018-11-17 16:05] VITALS: BP 160/80
[2018-11-17 19:16] VITALS: BP 160/85
[2018-11-18 03:42] VITALS: BP 146/67
--- NOTE | 2018-11-18 06:07 | NUR ---
Pt. has slept well during the night with BIPAP on otherwise she is on 4L/NC. Shortness of breath with exertion.Up independently to use bedside commode. Gets anxious but redirectible. Making progress towards care plan goals.
[2018-11-18 07:17] LABS: HEMATOCRIT 35.3 % (37.0-47.0); HEMOGLOBIN 11.4 gm/dL (12.0-15.0); MCH 29.1 pg (26.0-34.0); MCHC 32.2 g/dL (28.0-37.0); MCV 90.2 fL (80.0-100.0); RBC 3.91 mil/uL (4.20-5.00); RDW 14.8 % (10.5-14.5); WBC 5.3 thou/uL (4.0-11.0)
[2018-11-18 07:23] LABS: CALCIUM 9.9 mg/dL (8.5-10.1); CREATININE 0.7 mg/dL (0.6-1.0); POTASSIUM 4.5 mmol/L (3.5-5.1)
[2018-11-18 07:48] VITALS: BP 157/74
[2018-11-18 11:10] VITALS: BP 154/73
[2018-11-18] MEDS ORDERED: MUCINEX600 MG PO (13:29)
[2018-11-18] MEDS ORDERED: PREDNISONE 10 M10 MG PO (13:34)
[2018-11-18] MEDS ORDERED: LEVAQUIN 750 M750 MG PO (13:35)
== END 2018-11-18 16:31 | DRG 189 ==
LOC: ER 11:00 → EROBS 12:34 → 3W 12:34
PROVIDERS: Hospitalist; Internal Medicine Pulmonary Disease; Physician Assistant; ADMIT Internal Medicine
PROC: 5A09357 Assistance with Respiratory Ventilation, Less than 24 Consecutive Hours, Continuous Positive Airway Pressure (ICD-10-PCS; principal; 2018-11-14)
PROC: 5A09357 Assistance with Respiratory Ventilation, Less than 24 Consecutive Hours, Continuous Positive Airway Pressure (ICD-10-PCS; 2018-11-15)
PROC: 5A09357 Assistance with Respiratory Ventilation, Less than 24 Consecutive Hours, Continuous Positive Airway Pressure (ICD-10-PCS; 2018-11-16)
PROC: 5A09357 Assistance with Respiratory Ventilation, Less than 24 Consecutive Hours, Continuous Positive Airway Pressure (ICD-10-PCS; 2018-11-17)
PROC: 5A09357 Assistance with Respiratory Ventilation, Less than 24 Consecutive Hours, Continuous Positive Airway Pressure (ICD-10-PCS; 2018-11-18)
DX: J96.21 Acute and chronic respiratory failure with hypoxia (principal); I50.32 Chronic diastolic (congestive) heart failure; J44.1 Chronic obstructive pulmonary disease with (acute) exacerbation; K21.9 Gastro-esophageal reflux disease without esophagitis; E11.40 Type 2 diabetes mellitus with diabetic neuropathy, unspecified; F31.9 Bipolar disorder, unspecified; J96.22 Acute and chronic respiratory failure with hypercapnia; I48.2 Chronic atrial fibrillation; F41.1 Generalized anxiety disorder; I11.0 Hypertensive heart disease with heart failure; E05.90 Thyrotoxicosis, unspecified without thyrotoxic crisis or storm; G47.33 Obstructive sleep apnea (adult) (pediatric); B19.20 Unspecified viral hepatitis C without hepatic coma; I48.0 Paroxysmal atrial fibrillation; D69.6 Thrombocytopenia, unspecified; Z87.891 Personal history of nicotine dependence; Z87.01 Personal history of pneumonia (recurrent); Z87.81 Personal history of (healed) traumatic fracture; Z99.81 Dependence on supplemental oxygen; Z90.710 Acquired absence of both cervix and uterus; Z79.4 Long term (current) use of insulin; Z79.899 Other long term (current) drug therapy; Z88.6 Allergy status to analgesic agent; Z88.0 Allergy status to penicillin; Z88.8 Allergy status to other drugs, medicaments and biological substances
CPT/HCPCS: 10879

== ENCOUNTER 2018-12-05 12:01 | Emergency (ER) | payer OTHER ==
[~2018-12-05] VITALS: Ht 160 cm; Wt 79.4 kg
[~2018-12-05 12:01] MED LIST changes: +DULERA 200 MCG/13 GM INH
[2018-12-05 13:47] LABS: ABSOLUTE NEUTROPHILS 5.2 thou/uL (1.4-8.2); BASOPHILS 0.8 % (0.0-2.0); HEMATOCRIT 42.1 % (37.0-47.0); LYMPHOCYTES 19.4 % (24.0-44.0); MCH 29.5 pg (26.0-34.0); MCHC 33.2 g/dL (28.0-37.0); MONOCYTES 7.1 % (1.0-8.0); PLATELET COUNT 114 thou/uL (150-400); POLYS 71.7 % (36.0-66.0); RBC 4.73 mil/uL (4.20-5.00); WBC 7.3 thou/uL (4.0-11.0)
[2018-12-05 13:54] LABS: APTT 24.7 Seconds (24.5-32.8); PROTIME 10.1 Seconds (9.3-11.4)
[2018-12-05 13:56] LABS: ANION GAP 1 mmol/L (7-16); BUN 18 mg/dL (7-18); CALCIUM 9.9 mg/dL (8.5-10.1); CHLORIDE 97 mmol/L (98-107); CO2 43 mmol/L (21-32); CREATININE 0.6 mg/dL (0.6-1.0); GLUCOSE 192 mg/dL (74-106); POTASSIUM 4.6 mmol/L (3.5-5.1); SODIUM 141 mmol/L (136-145)
[2018-12-05 14:06] LABS: ALBUMIN 3.4 g/dL (3.4-5.0); MAGNESIUM 1.7 mg/dL (1.8-2.4); SGOT 18 U/L (15-37); SGPT 23 U/L (30-65); TOTAL BILIRUBIN 0.6 mg/dL (<0.1-1.0); TOTAL PROTEIN 7.4 g/dL (6.4-8.2); TROPONIN-I <0.06 ng/mL (<0.06)
[2018-12-05 14:07] LABS: AMP/METHAMP Negative (Negative); BARBITURATES Negative (Negative); BENZODIAZEPINES Negative (Negative); COCAINE Negative (Negative); METHADONE Negative (Negative); OPIATES Negative (Negative); PCP Negative (Negative)
[2018-12-05] MEDS ORDERED: PREDNISONE 20 M20 MG PO (15:35)
[2018-12-05] MEDS ORDERED: TESSALON PERLE100 MG PO (15:35)
[2018-12-05] MEDS ORDERED: NORCO 5-325 TA1 EAC1 PO (15:35)
[2018-12-05 15:52] VITALS: BP 136/61
--- NOTE | 2018-12-05 17:30 | EKG ---
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 : 1960 Requested By: Minesh Rubi Order Number: [id number] MD: Jacky Chowdhury Measurements Intervals [place] Rate: 87 P: 61 WA: 121 QRS: 76 QRSD: 82 T: 71 QT: 348 QTc: 419 Interpretive Statements Sinus rhythm No significant abnormality Compared to ECG 11/14/2018 11:19:49 Sinus tachycardia no longer present Electronically Signed On 12-05-2018 17:30:24 CDT by Jacky Chowdhury [email or web address] ��������������������������������������������� <ELECTRONICALLY SIGNED> ���������������������������������������� By: Jacky Chowdhury MD, [facility] ��������������������������������������������� 12/05/18 1730 1211 1211 Jacky Chowdhury MD, FACC /EPI
== END 2018-12-05 16:15 | disposition home or self-care (01) ==
LOC: ER 12:01
PROVIDERS: Emergency Medicine
DX: R07.89 Other chest pain (principal); G89.4 Chronic pain syndrome; F11.20 Opioid dependence, uncomplicated; R05 Cough; K21.9 Gastro-esophageal reflux disease without esophagitis; I48.91 Unspecified atrial fibrillation; I50.9 Heart failure, unspecified; B19.20 Unspecified viral hepatitis C without hepatic coma; E11.40 Type 2 diabetes mellitus with diabetic neuropathy, unspecified; J44.9 Chronic obstructive pulmonary disease, unspecified; E05.90 Thyrotoxicosis, unspecified without thyrotoxic crisis or storm; Z90.710 Acquired absence of both cervix and uterus; Z87.01 Personal history of pneumonia (recurrent); Z87.891 Personal history of nicotine dependence; Z88.0 Allergy status to penicillin; Z88.5 Allergy status to narcotic agent; Z88.6 Allergy status to analgesic agent; Z88.8 Allergy status to other drugs, medicaments and biological substances